=== PATIENT | male | born 1950 | race Caucasian/White ===

== ENCOUNTER 2018-07-01 09:03 | Emergency (ER) | payer BC ==
[2018-07-01 09:23] VITALS: BP 122/76
--- NOTE | 2018-07-01 09:51 | UC ---
Knee Pain HPI - HPI Summary HPI Summary: Pt c/o sudden onset of left knee pain without known injury. Pt c/o throbbing generalized knee pain. No redness, no hx of injury, minimal swelling, began xarelto l~ 5 days ago for afib. Has hx of Pulmonary Emboli post left shoulder surgery. - History of Current Complaint Chief Complaint: UCLowerExtremity Stated Complaint: LEFT KNEE INJURY Time Seen by Provider: 07/01/18 09:17 Hx Obtained From: Patient Onset/Duration: Sudden Onset, Lasting Hours Severity Initially: Severe Severity Currently: Severe Pain Intensity: 9 Character: Dull, Aching, Throbbing, Stiffness Aggravating Factor(s): Movement, Weight Bearing, Prolonged Standing, Stairs Alleviating Factor(s): Rest, Position Associated Signs And Symptoms: Positive: Swelling - minimal Able to Bear Weight: Yes - minimal - Risk Factors Septic Arthritis Risk Factor: Negative Gout Risk Factor: Age ^ 41, Male - Allergies/Home Medications Allergies/Adverse Reactions: Allergies Allergy/AdvReac Type Severity Reaction Status Date / Time oxycodone Allergy See Comment Verified 07/01/18 09:14 tetracycline Allergy See Comment Verified 07/01/18 09:14 Home Medications: Home Medications Omeprazole 20 mg PO DAILY 07/01/18 [History Confirmed 07/01/18] PMH/Surg Hx/FS Hx/Imm Hx Previously Healthy: No Cardiovascular History: Cardiac Disease, Atrial Fibrillation - Surgical History Surgical History: Yes Surgery Procedure, Year, and Place: left total shoulder,. Right rotator cuff shoulder - Family History Known Family History: Positive: Cardiac Disease - Social History Occupation: Employed Full-time - [place] Lives: With Family Alcohol Use: Daily Alcohol Amount: machelle nightly Substance Use Type: None Smoking Status (MU): Never Smoked Tobacco Have You Smoked in the Last Year: No Review of Systems All Other Systems Reviewed And Are Negative: Yes Constitutional: Positive: Negative Skin: Positive: Negative Eyes: Positive: Negative ENT: Positive: Negative Respiratory: Positive: Negative Cardiovascular: Positive: Negative Gastrointestinal: Positive: Negative Genitourinary: Positive: Negative Motor: Positive: Decreased ROM - left knee Neurovascular: Positive: Negative Musculoskeletal: Positive: Arthralgia, Decreased ROM, Edema, Myalgia Neurological: Positive: Negative Psychological: Positive: Negative Is Patient Immunocompromised?: No Physical Exam Triage Information Reviewed: Yes Appearance: Pain Distress Vital Signs: Initial Vital Signs Temp 97.9 F 07/01/18 09:19 Pulse 100 07/01/18 09:19 Resp 18 07/01/18 09:19 BP 122/76 07/01/18 09:19 Pulse Ox 98 07/01/18 09:19 Vital Signs Reviewed: Yes Eye Exam: Normal ENT: Positive: Hearing grossly normal Dental Exam: Normal Neck exam: Normal Respiratory: Positive: No respiratory distress Musculoskeletal: Positive: ROM Limited @ - left knee, Other: - c/o pain left knee joint space and at left lateral epicondyle/lateral distal femur Neurological Exam: Normal Psychological Exam: Normal Skin Exam: Normal Diagnostics - Radiology No standard instances Radiology Interpretation Completed By: Radiologist - IMPRESSION: Joint space narrowing medial compartment left knee with degenerative changes of the patellofemoral joint. Knee Pain Course/Dx - Differential Dx/Diagnosis Differential Diagnosis/HQI/PQRI: Internal Derangement Of Knee, Sprain, Strain Provider Diagnosis: Pain and swelling of left knee Discharge - Sign-Out/Discharge Documenting (check all that apply): Patient Departure All imaging exams completed and their final reports reviewed: Yes - Discharge Plan Condition: Stable Disposition: HOME Patient Education Materials: Patellofemoral Pain Syndrome (ED), Knee Pain (ED) Forms: *Work Release Referrals: Lynne Silva MD [Medical Doctor] - As Soon As Possible Boland DO,Jose Deluna [Primary Care Provider] - As Soon As Possible - Billing Disposition and Condition Condition: STABLE Disposition: Home - Attestation Statements Provider Attestation: Per institutional requirements, I have reviewed the chart, however, I was not consulted specifically or made aware of this patient by the midlevel provider. I did not personally evaluate, interact with , or disposition this patient.
== END 2018-07-01 10:48 | disposition home or self-care (01) ==
LOC: UCCORT 09:03
DX: M25.562 Pain in left knee (principal); M25.462 Effusion, left knee; Z88.5 Allergy status to narcotic agent; Z88.1 Allergy status to other antibiotic agents; I48.91 Unspecified atrial fibrillation; Z86.711 Personal history of pulmonary embolism
CPT/HCPCS: 99211; G0463

== ENCOUNTER 2018-08-23 12:00 | Inpatient (IN) | payer BC ==
--- NOTE | 2018-08-10 13:23 | HP ---
HISTORY AND PHYSICAL: DATE OF ADMISSION/SURGERY: 08/23/18 DATE OF OFFICE VISIT: 08/10/18 SURGEON: Lynne Silva MD.* (DICTATED BY DONTA CHE) PROCEDURE: Left total knee arthroplasty. CHIEF COMPLAINT: Left knee pain. HISTORY OF PRESENT ILLNESS: Mr. Barth is a 67-year-old gentleman with continued complaints of left knee pain. He has failed conservative treatment and elected to proceed with a left total knee arthroplasty. PAST MEDICAL HISTORY: 1. Hypertension. 2. Coronary artery disease. 3. History of pulmonary embolism. 4. AFib. 5. GERD. PAST SURGICAL HISTORY: Right total shoulder replacement and left shoulder arthroscopy. CURRENT MEDICATIONS: 1. Xarelto 20 mg a day. 2. Omeprazole 20 mg a day. 3. Alprazolam 1 mg daily. 4. Amlodipine 5 mg daily. 5. Mometasone nasal spray as needed. 6. Carvedilol 6.25 mg daily. 7. Vitamin C. 8. Multivitamin. 9. Osteo Bi-Flex. 10. CoQ-10. 11. Patricia-D. ALLERGIES: TETRACYCLINE and OXYCODONE; he states OXYCODONE made his heart stop in the past. FAMILY HISTORY: Coronary artery disease and diabetes. SOCIAL HISTORY: He is a 67-year-old gentleman who lives with his . He does not smoke or use drugs. Uses occasional alcohol. REVIEW OF SYSTEMS: A complete 14-point review of systems was reviewed with the patient. It was positive for occasional shortness of breath, GERD, and history of a pulmonary embolism. He denies history of hepatitis, HIV, or anesthesia problems. PHYSICAL EXAMINATION GENERAL: He is well developed, well nourished, in no acute distress. VITAL SIGNS: He stands 5 feet 10 inches tall, weighs 228 pounds. Blood pressure 124/82, his heart rate is 80. HEENT: Normocephalic, atraumatic. NECK: Supple. No palpable lymph nodes. PULMONARY: The lungs are clear to auscultation bilaterally. CARDIO: Regular rate and rhythm. Strong S1, S2. ABDOMEN: Soft, nontender, nondistended. NEUROLOGICAL: He is alert and oriented x3. MUSCULOSKELETAL: Left lower extremity, the skin is intact. There are no open wounds or abrasions. He has moderate joint effusions and tenderness over the medial and lateral joint line. He walks with an antalgic-type gait favoring his left knee. Range of motion is 10 to 120 degrees of flexion with severe patellofemoral crepitus. He has 2+ dorsalis pedis pulse. He is able to dorsiflex and plantarflex and he has intact sensation. ASSESSMENT AND PLAN: Mr. Barth is a 67-year-old gentleman with endstage osteoarthritis of the left knee. He has failed conservative treatment and elected to proceed with a left total knee arthroplasty. The surgery is scheduled for 08/23/[address] Silva discussed the risks and benefits of the surgery at today's visit and all of his questions were answered. He will follow with Dr. Silva 2 weeks after the surgery. Postoperatively, he will be given tramadol for pain only and no TXA will be used on this patient because of his history of a pulmonary embolism. DONTA CHE [id number]/[facility] #: [id number]
[~2018-08-23 12:00] MED LIST: Acetaminophen TAB* 325 MG PO ONE; Buffered Lidocaine 1% SYRIN* 1 ML/SYRINGE INTRADERM ONE; Dexamethasone IV* 4 MG/ML 1 ML (4 MG) IV SLOW PU ONE; Famotidine TAB* 20 MG PO ONE; Gabapentin CAP(*) 300 MG PO ONE; Lactated Ringers 1000 ML Bag* 1,000 ML IV SCH; celeCOXIB CAP* 200 MG PO ONE
--- OUTSIDE RECORDS SUMMARY | 2018-08-23 12:04 | XMS REPORT | Continuity of Care Document ---
:1950 External Reference #:[id number] Author Name Jose Boland DO Address [address] [place] [address] Care Team Providers Name Role Phone Jose Boland DO Primary Care Physician Unavailable Payers Date Identification Numbers Payment Provider Subscriber Effective: 2011 Policy Number: [id number] [facility] Commercial Mickey Barth PayID: [id number] [address] [address] [place] [phone] Effective: 2009 Policy Number: [id number] [facility] [email or web address] Mickey Barth Expires: 2011 PayID: [id number] [address] [address] [place] [address] Advance Directives Description No Information Available Problems Date Description Provider Status Onset: 10/26/2011 Benign hypertensive heart disease Natan Garcia MD Active without congestive heart failure Onset: 10/26/2011 Mitral valve disorder Natan Garcia MD Active Onset: 10/26/2011 Premature beats Natan Garcia MD Active Onset: 10/26/2011 First degree atrioventricular block Natan Garcia MD Active Onset: 10/06/2014 Chest pain Natan Garcia MD Active Onset: 12/03/2014 Prinzmetal angina Natan Garcia MD Active Onset: 06/10/2015 Pulmonary embolism Jose Boland DO Active Onset: 10/07/2016 Supraventricular premature beats Natan Garcia MD Active Onset: 08/02/2018 Preoperative cardiovascular examination Natan Garcia MD Active Onset: 08/02/2018 Persistent atrial fibrillation Natan Garcia MD Active Onset: 08/09/2018 Cardiomyopathy, unspecified Natan Garcia MD Active Onset: 08/09/2018 Body mass index 30+ - obesity Natan Garcia MD Active Onset: 03/07/2013 Obesity Jose Boland DO Active Onset: 04/07/2011 Restless legs Jose Boland DO Active Onset: 04/07/2011 Benign essential hypertension Jose Boland DO Active Onset: 06/04/2015 Postoperative pulmonary embolus Active Onset: 06/04/2015 Hemoptysis Active Onset: 06/02/2015 Full thickness rotator cuff tear Active Onset: 01/10/2015 Injury of shoulder region Active Family History Description No Information Available Social History Type Date Description Comments Sex Unknown Education Highest level completed, 12th grade Marital Status Lives With Spouse 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 ETOH Use consumes 4-5 beers per week Tobacco Use Start: Unknown Patient has never smoked Smoking Status Reviewed: 08/09/18 Patient has never smoked Allergies, Adverse Reactions, Alerts Date Description Reaction Status Severity Comments 10/24/2011 Tetracycline Active 10/24/2011 Dust Mites Active 10/24/2011 Grass Active 10/24/2011 Trees Active 06/10/2015 Oxycodone Unconscious Active Severe 12/18/2014 Tetracyclines & Related Anaphylaxis Active Severe Medications Medication Date Status Form Strength Qnty SIG Indications Ordering Provider Carvedilol 08/09 Active Tablets 6.25mg 60tab 1 by mouth Jose, s twice a day MD Natan Xarelto 06/27 Active Tablets 20mg 90tab 1 by mouth Krystian, s every day DO Jose Alprazolam 12/26 Active Tablets 1mg 30tab 1 by mouth Krystian, s every night oJse at bedtime- DO do not fill until 08/17 Amlodipine 10/06 Active Tablets 5mg 30tab 1 by mouth Jose Besylate s every day MD Natan Vitamin C 10/23 Active Tablets 500mg 1 po qd Jose MD Natan Coq-10 10/23 Active Capsules 100mg 1 po qd Jose MD Natan Osteo Bi-Flex 10/23 Active Tablets 250-200mg 1 po qd Jose MD Natan Strength Nasonex 10/23 Active Suspension 50mcg/Act 17uni 2 sprays Krystian ts each nostril Jose every day as DO needed Multivitamins Active Capsules 1 po qd Unknown Fexofenadine-Ps Active Tablets ER 60-120mg 1 by mouth Unknown eudoephed ER / 12HR twice a day as needed Omeprazole Active Capsules DR 20mg 120ca take 1 Boland ps capsule by Jose, mouth once DO daily Metoprolol 02/23 Hx Tablets ER 25mg 60tab 1 by mouth Jose, Succinate 24HR s twice a day MD Natan - 08/09 Omeprazole 06/[address] 20mg 120ca 1 by mouth K21.9 ps every day Jose, - DO 07/22 Amoxicillin 11/21 Hx Capsules 500mg 4caps take 4 capsules Jose - (2000mg) one DO 11/23 hour prior to dental appointment Jublia 06/29 Hx Solution 10% 8ml apply to B35.1 toenails Jose, - affected DO 12/20 once a day Xarelto 06/10 Hx Tablets 20mg 90tab 1 po daily I26.99 s Jose, - DO 12/14 Alprazolam 06/03 Hx Tablets 0.5mg 30tab Take 0.5 s tablets by - mouth 07/10 nightly needed for Sleep or Anxiety. Max Daily Amount: 0.25 mg. Aspirin 06/03 Hx Tablets 325mg 30tab Take 1 s tablet by - mouth daily. 02/02 To clots post op, take with food. Augmentin 09/18 Hx Tablets 875-125mg 20tab 1 by mouth 461.9 Boland s twice a day Jose - x 10 days DO 09/28 Sertraline HCL 07/24 Hx Tablets 25mg 30tab 1 by mouth s every day Jose, - DO 08/18 Aspirin 09/11 Hx Tablets 81mg 1 po qd Jose, MD Natan - 05/28 Patricia Allergy 10/23 Hx Tablets 180mg 1 po qd Jose MD Natan - 10/25 Aspirin 10/23 Hx Tablets 325mg 1 po qd Jose MD Natan - 09/11 Xanax 10/23 Hx Tablets 0.5mg 30tab 1 by mouth Krystian, s every night Jose, - at bedtime DO 12/26 as needed Aleve 10/23 Hx Capsules 220mg 2 po qd Jose MD Natan - 06/10 Diovan 07/28 Hx Tablets 160mg 30tab 1 by mouth Jose, s every day MD Natan - 10/06 Toprol XL 05/31 Hx Tablets ER 25mg 60tab 1 by mouth Jose 24HR s twice a day MD Natan - 02/23 Vitamin E Hx Capsules 400Unit 1 po qd Unknown Natural /0000 - 08/28 Valsartan Hx Tablets 160mg 90tab 1 po qd Jose, s MD Natan - 09/26 Aspirin Ec Hx Tablets DR 81mg 1 by mouth Unknown /0000 every day - 06/10 Acetaminophen Hx Tablets ER 650mg 1 by mouth Unknown ER /0000 every 6 - hours as 02/02 needed pain Aleve Hx Tablets 220mg 2 by mouth Unknown /0000 every day - 08/17 Immunizations CPT Code Status Date Vaccine Lot # [id number] Given 04/15/2018 Prevnar 13 Pneumococal Conjugate Vaccine 53481 Given 04/15/2018 Fluzone Highdose Age 65 And Over Preservative & Antibiotic Free Q2037 Given 03/11/2017 Fluvirin Immunization 59033 Given 03/11/2017 Zoster (Zostavax) 85228 Given 06/04/2016 Influenza Virus Vaccine,Quadrivalent,Split,Preserv Free, 0.5mL,[place] [address] Given 06/03/2015 Influenza Vac, Quadrivalent, Split, 0.25mL, Im Use 45946 Given 03/07/2013 Afluria Or Fluvirin Flu Vac Intramuscular 72879 Given 05/15/2012 Afluria Or Fluvirin Flu Vac Intramuscular Vital Signs Date Vital Result Comment 08/17/2018 11:41am Weight 228.00 lb Heart Rate 98 /min BP Systolic 154 mmHg BP Diastolic 86 mmHg BP Systolic Recheck 128 mmHg BP Diastolic Recheck 82 mmHg Respiratory Rate 18 /min Height 68 inches 5'8" O2 % BldC Oximetry 97 % BMI (Body Mass Index) 34.7 kg/m2 08/09/2018 12:55pm Weight 225.00 lb Heart Rate 100 /min occasionally irregular BP Systolic 128 mmHg BP Diastolic 74 mmHg Height 68 inches 5'8" BMI (Body Mass Index) 34.2 kg/m2 06/25/2018 9:58am Weight 226.00 lb Heart Rate 74 /min BP Systolic 140 mmHg BP Diastolic 90 mmHg Respiratory Rate 18 /min Height 68 inches 5'8" BMI (Body Mass Index) 34.4 kg/m2 12/20/2017 8:54am Weight 228.00 lb Heart Rate 74 /min BP Systolic 124 mmHg BP Diastolic 74 mmHg Respiratory Rate 18 /min Height 68 inches 5'8" BMI (Body Mass Index) 34.7 kg/m2 08/28/2017 10:31am Weight 230.00 lb Heart Rate 44 /min regular BP Systolic 126 mmHg BP Diastolic 74 mmHg Height 68 inches 5'8" BMI (Body Mass Index) 35.0 kg/m2 06/22/2017 9:40am Weight 230.00 lb Heart Rate 82 /min BP Systolic 138 mmHg BP Diastolic 84 mmHg Respiratory Rate 18 /min Height 68 inches 5'8" (12/2016) BMI (Body Mass Index) 35.0 kg/m2 12/20/2016 9:04am Weight 236.00 lb Heart Rate 92 /min BP Systolic 128 mmHg BP Diastolic 86 mmHg Respiratory Rate 18 /min Height 68 inches 5'8" (12/2016) BMI (Body Mass Index) 35.9 kg/m2 10/07/2016 11:06am Weight 234.00 lb Heart Rate 60 /min irregular BP Systolic 118 mmHg BP Diastolic 66 mmHg Height 68 inches 5'8" BMI (Body Mass Index) 35.6 kg/m2 06/22/2016 9:42am Weight 245.00 lb Heart Rate 88 /min BP Systolic 142 mmHg BP Diastolic 78 mmHg Respiratory Rate 18 /min Height 68 inches 5'8" (06/2016) BMI (Body Mass Index) 37.2 kg/m2 02/03/2016 8:08am Weight 242.00 lb Heart Rate 60 /min occasional skip BP Systolic 118 mmHg BP Diastolic 68 mmHg Height 68 inches 5'8" BMI (Body Mass Index) 36.8 kg/m2 12/17/2015 8:15am Weight 243.00 lb Heart Rate 54 /min BP Systolic 112 mmHg BP Diastolic 60 mmHg Respiratory Rate 18 /min Height 68 inches 5'8" BMI (Body Mass Index) 36.9 kg/m2 09/29/2015 9:48am Weight 242.00 lb Heart Rate 50 /min BP Systolic 132 mmHg BP Diastolic 84 mmHg Respiratory Rate 18 /min Height 68 inches 5'8" BMI (Body Mass Index) 36.8 kg/m2 08/03/2015 9:48am Weight 241.00 lb Heart Rate 56 /min regular BP Systolic 126 mmHg BP Diastolic 64 mmHg Height 68 inches 5'8" BMI (Body Mass Index) 36.6 kg/m2 07/02/2015 2:43pm Weight 241.00 lb Heart Rate 100 /min irregular BP Systolic 126 mmHg BP Diastolic 68 mmHg Height 68 inches 5'8" BMI (Body Mass Index) 36.6 kg/m2 06/29/2015 8:18am Weight 236.00 lb Heart Rate 56 /min BP Systolic 142 mmHg BP Diastolic 80 mmHg Respiratory Rate 18 /min Height 68 inches 5'8" BMI (Body Mass Index) 35.9 kg/m2 06/10/2015 10:19am Weight 232.00 lb Heart Rate 60 /min BP Systolic 150 mmHg BP Diastolic 90 mmHg Respiratory Rate 18 /min Height 68 inches 5'8" O2 % BldC Oximetry 97 % BMI (Body Mass Index) 35.3 kg/m2 06/04/2015 3:00pm Heart Rate 94 /min BP Systolic 143 mmHg BP Diastolic 66 mmHg Respiratory Rate 20 /min O2 % BldC Oximetry 95 % 06/04/2015 3:36pm Body Temperature 98.1 F 05/06/2015 11:05am Weight 237.00 lb Heart Rate 88 /min BP Systolic 128 mmHg BP Diastolic 80 mmHg Respiratory Rate 18 /min Height 68 inches 5'8" BMI (Body Mass Index) 36.0 kg/m2 12/26/2014 8:44am Weight 230.00 lb Heart Rate 64 /min BP Systolic 138 mmHg L/Reg BP Diastolic 74 mmHg L/Reg Respiratory Rate 19 /min Height 68 inches 5'8" BMI (Body Mass Index) 35.0 kg/m2 12/03/2014 7:20am Weight 234.00 lb Heart Rate 60 /min BP Systolic 110 mmHg BP Diastolic 78 mmHg Height 68 inches 5'8" BMI (Body Mass Index) 35.6 kg/m2 10/06/2014 2:20pm Weight 231.00 lb Heart Rate 88 /min regular BP Systolic 118 mmHg BP Diastolic 64 mmHg Height 68 inches 5'8" BMI (Body Mass Index) 35.1 kg/m2 09/18/2014 9:37am Body Temperature 97.4 F Weight 235.00 lb Heart Rate 72 /min BP Systolic 144 mmHg BP Diastolic 82 mmHg Respiratory Rate 18 /min Height 68 inches 5'8" O2 % BldC Oximetry 96 % BMI (Body Mass Index) 35.7 kg/m2 08/18/2014 10:49am Weight 233.00 lb Heart Rate 80 /min BP Systolic 136 mmHg BP Diastolic 70 mmHg Respiratory Rate 18 /min Height 68 inches 5'8" BMI (Body Mass Index) 35.4 kg/m2 07/23/2014 3:11pm Body Temperature 98.4 F Weight 236.00 lb Heart Rate 97 /min BP Systolic 128 mmHg BP Diastolic 74 mmHg Respiratory Rate 18 /min Height 68 inches 5'8" O2 % BldC Oximetry 97 % BMI (Body Mass Index) 35.9 kg/m2 05/07/2014 9:52am BP Systolic 134 mmHg BP Diastolic 92 mmHg 05/07/2014 9:52am Weight 236.00 lb Heart Rate 84 /min BP Systolic 146 mmHg BP Diastolic 88 mmHg Respiratory Rate 18 /min Height 67.75 inches 5'7.75" 10/31/2013 11:06am Weight 236.00 lb Heart Rate 72 /min occasional skip BP Systolic 116 mmHg BP Diastolic 62 mmHg Height 68 inches 5'8" BMI (Body Mass Index) 35.9 kg/m2 10/25/2013 10:22am Weight 237.00 lb Heart Rate 72 /min BP Systolic 132 mmHg BP Diastolic 72 mmHg Respiratory Rate 18 /min Height 67.75 inches 5'7.75" 03/07/2013 10:08am Weight 233.00 lb Heart Rate 72 /min BP Systolic 126 mmHg BP Diastolic 78 mmHg Respiratory Rate 18 /min Height 67.75 inches 5'7.75" 09/11/2012 11:07am Weight 226.00 lb Heart Rate 80 /min occasional skip BP Systolic 92 mmHg BP Diastolic 56 mmHg Height 68 inches 5'8" BMI (Body Mass Index) 34.4 kg/m2 07/30/2012 9:31am Weight 224.00 lb Heart Rate 72 /min BP Systolic 108 mmHg BP Diastolic 78 mmHg Respiratory Rate 18 /min Height 67.75 inches 5'7.75" 01/27/2012 10:38am Weight 226.25 lb Heart Rate 88 /min BP Systolic 124 mmHg BP Diastolic 82 mmHg Respiratory Rate 18 /min Height 67.75 inches 5'7.75"12/29/2011 1:26pm Weight 224.00 lb Respiratory Rate 17 /min Height 67.75 inches 5'7.75"12/26/2011 11:06am Body Temperature 97.4 F Weight 224.50 lb Heart Rate 82 /min BP Systolic 120 mmHg BP Diastolic 68 mmHg Respiratory Rate 19 /min Height 67.75 inches 5'7.75"10/26/2011 11:03am Weight 226.00 lb Heart Rate 68 /min regular BP Systolic 104 mmHg BP Diastolic 66 mmHg Height 68 inches 5'8" BMI (Body Mass Index) 34.4 kg/m2 07/18/2011 1:04pm Weight 232.31 lb Heart Rate 70 /min BP Systolic 132 mmHg BP Diastolic 72 mmHg Respiratory Rate 18 /min Height 67.75 inches 5'7.75"04/07/2011 1:02pm Weight 238.19 lb Heart Rate 78 /min BP Systolic 124 mmHg BP Diastolic 94 mmHg Respiratory Rate 18 /min Height 67.75 inches 5'7.75"02/01/2011 8:41am Weight 235.00 lb Heart Rate 76 /min BP Systolic 140 mmHg BP Diastolic 80 mmHg Respiratory Rate 18 /min Height 67.75 inches 5'7.75" 06/03/2010 10:21am Weight 234.00 lb Heart Rate 64 /min BP Systolic 120 mmHg l arm BP Diastolic 70 mmHg l arm Respiratory Rate 18 /min 11/23/2009 10:03am Weight 247.12 lb Heart Rate 78 /min BP Systolic 132 mmHg BP Diastolic 76 mmHg Respiratory Rate 24 /min 10/22/2008 10:06am Weight 240.38 lb Heart Rate 96 /min BP Systolic 146 mmHg LEFT BP Diastolic 92 mmHg LEFT Respiratory Rate 15 /min 09/17/2008 10:24am Weight 242.12 lb Heart Rate 68 /min BP Systolic 138 mmHg LEFT BP Diastolic 88 mmHg LEFT Respiratory Rate 14 /min Height 68 inches 5'8" Results Test Date Facility Test Result H/L Range Note CBC with Auto Diff-fcmg 06/19/2018 [facility] WBC 5.2 K/uL 4.1-11.0 RBC 5.20 M/uL 4.60-6.10 Hemoglobin 14.6 gm/dL 13.5-18.0 Hematocrit 44.3 % 41.0-53.0 MCV 85.0 fL 80.0-97.0 MCH 28.1 pg 27.0-32.0 MCHC 33.0 g/dL 32.0-36.0 RDW 14.3 % 11.5-14.5 PLT Count 228 K/ul 140-400 MPV 9.4 FL 7.1-10.7 Neutrophil 64.8 % 35.0-75.0 Lymphocyte 19.2 % 16.0-52.0 Monocyte 13.6 % High 2.0-10.0 Eosinophil 1.4 % 0.0-5.0 Basophil 1.0 % 0.0-4.0 Abs Neutrophils 3.4 K/uL 2.1-8.0 Abs Lymphocytes 1.0 K/uL 0.8-5.5 Abs Monocytes 0.7 K/uL 0.1-1.0 Abs Eosinophils 0.1 K/uL 0.0-0.5 Abs Basophils 0.1 K/uL 0.0-0.3 Basic (BMP) 06/19/2018 [facility] Sodium 141 mmol/L 135-146 1 Potassium 4.8 mmol/L 3.5-5.2 Chloride# 106 mmol/L 97-110 2 Carbon Dioxide 28 mmol/L 24-34 Glucose 109 mg/dL High 70-105 BUN 31 mg/dL High 6-26 Creatinine 1.0 mg/dL 0.5-1.4 Calcium 9.2 mg/dL 8.5-10.2 Non Erica Egfr >60 >60 3 Erica Egfr >60 >60 4 Anion Gap 7 mmol/L 5-15 5 Laboratory test finding 06/19/2018 [facility] TSH 2.82 uIU/mL 0.35-4.94 Lipid Treatment 06/19/2018 [facility] Cholesterol 163 mg/dL 50-199 Triglycerides 55 mg/dL 30-200 HDL 48 mg/dL 29-71 6 Chol/ HDL Ratio 3.4 ratio Low 4.0-6.7 VLDL 11 mg/dL 2-29 LDL (Calc) 104 mg/dL High 20-99 7 Alt 15 U/L 3-42 Ast 18 U/L 8-42 CBC With Auto Diff 12/13/2017 [facility] WBC 3.8 K/uL Low 4.1-11.0 RBC 5.05 M/uL 4.60-6.10 Hemoglobin 14.3 gm/dL 13.5-18.0 Hematocrit 43.7 % 41.0-53.0 MCV 86.6 fL 80.0-97.0 MCH 28.2 pg 27.0-32.0 MCHC 32.6 g/dL 32.0-36.0 RDW 14.9 % High 11.5-14.5 PLT Count 157 K/ul 140-400 MPV 10.4 FL 7.1-10.7 Neutrophil 58.1 % 35.0-75.0 Lymphocyte 22.8 % 16.0-52.0 Monocyte 16.8 % High 2.0-10.0 Eosinophil 1.7 % 0.0-5.0 Basophil 0.6 % 0.0-4.0 Abs Neutrophils 2.2 K/uL 2.1-8.0 Abs Lymphocytes 0.9 K/uL 0.8-5.5 Abs Monocytes 0.6 K/uL 0.1-1.0 Abs Eosinophils 0.1 K/uL 0.0-0.5 Abs Basophils 0.0 K/uL 0.0-0.3 Basic (BMP) 12/13/2017 [facility] Sodium 143 mmol/L 135-146 8 Potassium 4.6 mmol/L 3.5-5.2 Chloride# 107 mmol/L 97-110 9 Carbon Dioxide 27 mmol/L 24-34 Glucose 96 mg/dL 70-105 BUN 37 mg/dL High 6-26 Creatinine 1.0 mg/dL 0.5-1.4 Calcium 9.0 mg/dL 8.5-10.2 Non Erica Egfr >60 >60 10 Erica Egfr >60 >60 11 Anion Gap 9 mmol/L 5-15 12 Laboratory test finding 12/13/2017 [facility] TSH 3.52 uIU/mL 0.35-4.94 Lipid Treatment 12/13/2017 [facility] Cholesterol 166 mg/dL 50-199 Triglycerides 50 mg/dL 30-200 HDL 45 mg/dL 29-71 13 Chol/ HDL Ratio 3.7 ratio Low 4.0-6.7 VLDL 10 mg/dL 2-29 LDL (Calc) 111 mg/dL High 20-99 14 Alt 14 U/L 3-42 Ast 16 U/L 8-42 Laboratory test finding 12/13/2017 [facility] PSA 1.290 ng/mL 0.000-4.000 15 CBC With Auto Diff 06/15/2017 [facility] WBC 3.8 K/uL Low 4.1-11.0 RBC 5.12 M/uL 4.60-6.10 Hemoglobin 14.6 gm/dL 13.5-18.0 Hematocrit 44.5 % 41.0-53.0 MCV 86.8 fL 80.0-97.0 MCH 28.4 pg 27.0-32.0 MCHC 32.7 g/dL 32.0-36.0 RDW 14.3 % 11.5-14.5 PLT Count 177 K/ul 140-400 MPV 10.0 FL 7.1-10.7 Neutrophil 53.6 % 35.0-75.0 Lymphocyte 26.6 % 16.0-52.0 Monocyte 17.3 % High 2.0-10.0 Eosinophil 1.6 % 0.0-5.0 Basophil 0.9 % 0.0-4.0 Abs Neutrophils 2.0 K/uL Low 2.1-8.0 Abs Lymphocytes 1.0 K/uL 0.8-5.5 Abs Monocytes 0.7 K/uL 0.1-1.0 Abs Eosinophils 0.1 K/uL 0.0-0.5 Abs Basophils 0.0 K/uL 0.0-0.3 Basic (BMP) 06/15/2017 [facility] Sodium 144 mmol/L 135-146 16 Potassium 4.7 mmol/L 3.5-5.2 Chloride# 109 mmol/L 97-110 17 Carbon Dioxide 27 mmol/L 24-34 Glucose 98 mg/dL 70-105 Creatinine 1.0 mg/dL 0.5-1.4 Calcium 9.3 mg/dL 8.5-10.2 Non Erica Egfr >60 >60 18 Erica Egfr >60 >60 19 Anion Gap 8 mmol/L 7-16 20 BUN 29 mg/dL High 6-26 Laboratory test finding 06/15/2017 [facility] TSH 2.73 uIU/mL 0.35-4.94 Lipid Treatment 06/15/2017 [facility] Cholesterol 160 mg/dL 50-199 Triglycerides 66 mg/dL 30-200 HDL 45 mg/dL 29-71 21 Chol/ HDL Ratio 3.6 ratio Low 4.0-6.7 VLDL 13 mg/dL 2-29 LDL (Calc) 102 mg/dL High 20-99 22 Alt 14 U/L 3-42 Ast 18 U/L 8-42 CBC With Auto Diff 12/15/2016 [facility] WBC 4.1 K/uL 4.1-11.0 RBC 5.10 M/uL 4.60-6.10 Hemoglobin 14.5 gm/dL 13.5-18.0 Hematocrit 44.8 % 41.0-53.0 MCV 87.8 fL 80.0-97.0 MCH 28.4 pg 27.0-32.0 MCHC 32.3 g/dL 32.0-36.0 RDW 14.3 % 11.5-14.5 PLT Count 188 K/ul 140-400 Neutrophil 55.7 % 35.0-75.0 Lymphocyte 23.6 % 16.0-52.0 Monocyte 17.3 % High 2.0-10.0 Eosinophil 2.4 % 0.0-5.0 Basophil 1.0 % 0.0-4.0 Abs Neutrophils 2.3 K/uL 2.1-8.0 Abs Lymphocytes 1.0 K/uL 0.8-5.5 Abs Monocytes 0.7 K/uL 0.1-1.0 Abs Eosinophils 0.1 K/uL 0.0-0.5 Abs Basophils 0.0 K/uL 0.0-0.3 Basic (BMP) 12/15/2016 [facility] Sodium 141 mmol/L 135-146 23 Potassium 4.8 mmol/L 3.5-5.2 Chloride# 106 mmol/L 97-110 24 Carbon Dioxide 27 mmol/L 24-34 Glucose 101 mg/dL 70-105 BUN 32 mg/dL High 6-26 Creatinine 1.1 mg/dL 0.5-1.4 Calcium 9.0 mg/dL 8.5-10.2 Non Erica Egfr >60 >60 25 Erica Egfr >60 >60 26 Anion Gap 13 mmol/L 7-16 27 Laboratory test finding 12/15/2016 [facility] TSH 3.14 uIU/mL 0.35-4.94 Lipid Treatment 12/15/2016 [facility] Cholesterol 169 mg/dL 50-199 Triglycerides 73 mg/dL 30-200 HDL 45 mg/dL 29-71 28 Chol/ HDL Ratio 3.8 ratio Low 4.0-6.7 VLDL 15 mg/dL 2-29 LDL (Calc) 110 mg/dL High 20-99 29 Alt 14 U/L 3-42 Ast 17 U/L 8-42 CBC With Auto Diff 01/14/2016 [facility] WBC 4.3 K/uL 4.1-11.0 RBC 5.13 M/uL 4.60-6.10 Hemoglobin 14.5 gm/dL 13.5-18.0 Hematocrit 44.5 % 41.0-53.0 MCV 86.8 fL 80.0-97.0 MCH 28.3 pg 27.0-32.0 MCHC 32.6 g/dL 32.0-36.0 RDW 14.2 % 11.5-14.5 PLT Count 180 K/ul 140-400 Neutrophil 55.5 % 35.0-75.0 Lymphocyte 24.7 % 16.0-52.0 Monocyte 17.3 % High 2.0-10.0 Eosinophil 1.4 % 0.0-5.0 Basophil 1.1 % 0.0-4.0 Abs Neutrophils 2.4 K/uL 2.1-8.0 Abs Lymphocytes 1.1 K/uL 0.8-5.5 Abs Monocytes 0.7 K/uL 0.1-1.0 Abs Eosinophils 0.1 K/uL 0.0-0.5 Abs Basophils 0.0 K/uL 0.0-0.3 Basic (BMP) 01/14/2016 [facility] Sodium 139 mmol/L 134-142 Potassium 4.9 mmol/L 3.5-5.2 Chloride 105 mmol/L 97-109 Carbon Dioxide 28 mmol/L 24-34 Glucose 90 mg/dL 70-105 BUN 32 mg/dL High 6-26 Creatinine 1.0 mg/dL 0.5-1.4 Calcium 9.3 mg/dL 8.5-10.2 Anion Gap 11 mmol/L 6-14 Non Erica Egfr >60 >60 30 Erica Egfr >60 >60 31 Laboratory test finding 01/14/2016 [facility] TSH 3.19 uIU/mL 0.35-4.94 Lipid Treatment 01/14/2016 [facility] Cholesterol 178 mg/dL 50-199 Triglycerides 77 mg/dL 30-200 HDL 42 mg/dL 29-71 32 Chol/ HDL Ratio 4.2 ratio 4.0-6.7 VLDL 15 mg/dL 2-29 LDL (Calc) 121 mg/dL High 20-99 33 Alt 14 U/L 3-42 Ast 16 U/L 8-42 CBC With Auto Diff 06/29/2015 [facility] WBC 4.7 K/uL 4.1-11.0 RBC 5.00 M/uL 4.60-6.10 Hemoglobin 14.1 gm/dL 13.5-18.0 Hematocrit 43.9 % 41.0-53.0 MCV 87.8 fL 80.0-97.0 MCH 28.1 pg 27.0-32.0 MCHC 32.0 g/dL 32.0-36.0 RDW 14.6 % High 11.5-14.5 PLT Count 174 K/ul 140-400 Neutrophil 61.7 % 35.0-75.0 Lymphocyte 22.3 % 16.0-52.0 Monocyte 13.9 % High 2.0-10.0 Eosinophil 1.3 % 0.0-5.0 Basophil 0.8 % 0.0-4.0 Abs Neutrophils 2.9 K/uL 2.1-8.0 Abs Lymphocytes 1.0 K/uL 0.8-5.5 Abmon 0.6 K/uL 0.1-1.0 Abs Eosinophils 0.1 K/uL 0.0-0.5 Abs Basophils 0.0 K/uL 0.0-0.3 Basic (BMP) 06/29/2015 [facility] Sodium 140 mmol/L 134-142 Potassium 4.2 mmol/L 3.5-5.2 Chloride 106 mmol/L 97-109 Carbon Dioxide 27 mmol/L 24-34 Glucose 100 mg/dL 70-105 BUN 20 mg/dL 6-26 Creatinine 1.0 mg/dL 0.5-1.4 Calcium 9.1 mg/dL 8.5-10.2 Anion Gap 11 mmol/L 6-14 Non Erica Egfr >60 >60 34 Erica Egfr >60 >60 35 Laboratory test finding 06/29/2015 [facility] TSH 3.75 uIU/mL 0.35-4.94 Lipid Treatment 06/29/2015 [facility] Cholesterol 180 mg/dL 50-199 Triglycerides 77 mg/dL 30-200 HDL 47 mg/dL 29-71 36 Chol/ HDL Ratio 3.8 ratio Low 4.0-6.7 VLDL 15 mg/dL 2-29 LDL (Calc) 118 mg/dL High 20-99 37 Alt 12 U/L 3-42 Ast 14 U/L 8-42 Poct i-Stat 06/04/2015 N2N/CCD Import i-Stat Troponin 0.02 ng/mL 0.00- 0.10 Troponin I CBC and 06/04/2015 N2N/CCD Import Abs Basophil 0.0 10*3/uL 0.0-0.2 Differential Abs Eosinophil 0.0 10*3/uL 0.0-0.5 Abs Lymphocyte 1.1 10*3/uL Low 1.2-4.8 Abs Monocyte 1.1 10*3/uL High 0.0-0.8 Abs Neutrophil 5.7 10*3/uL 1.8-7.7 Basophil 0.4 % 0.0-4.0 Eosinophil 0.3 % 0.0-5.0 Hematocrit 39.6 % Low 41.0-53.0 Hemoglobin 13.0 g/dL Low 13.5-18.0 Lymphocyte 13.6 % Low 16.0-52.0 Mean Cell Hemoglobin 28.5 pg 27.0-32.0 Mean Cell Hgb Conc 32.9 g/dL 32.0-36.0 Mean Cell Volume 86.5 fL 80.0-95.0 Mean Platelet Volume 10.2 fL 7.1-10.7 Monocyte 14.2 % High 0.0-8.0 Neutrophil 71.5 % 35.0-75.0 Platelet Count 157 10*3/uL 150-450 Red Blood Cell Count 4.57 10*6/uL Low 4.60-6.10 Red Cell Dist Width 14.3 % 10.5-14.5 White Blood Cell 8.0 10*3/uL 4.1-11.0 Comprehensive Metabolic Panel 06/04/2015 N2N/CCD Import Alt/SGP 20 U/L 12-78 Anion Gap 7 mmol/L 7-16 Ast/Sgo 15 U/L 11-39 BUN/Cre Ratio 20.8 Ratio High 10.0-20.0 Bicarbonate 28 mmol/L 22-31 Bilirubin, Total 0.9 mg/dL 0.0-1.0 Blood Urea Nitrogen 21 mg/dL 7-24 Calcium 8.3 mg/dL Low 8.4-10.2 Chloride 104 mmol/L 100-108 Creatinine 1.01 mg/dL 0.80-1.30 GFR >60 >59 ml/min/1.73m2 GFR Interpretation See Notes GFR Non- >60 >59 ml/min/1.73m2 Globulin 3.7 g/dL 2.7-4.3 Glucose 105 mg/dL High 70-99 Potassium 4.0 mmol/L 3.6-5.2 Sodium 139 mmol/L 136-145 Total Protein 6.9 g/dL 6.4-8.2 [facility] K/uL 4.1-11.0 38 RBC 5.32 M/uL 4.60-6.10 Hemoglobin 14.9 gm/dL 13.5-18.0 Hematocrit 46.3 % 41.0-53.0 MCV 87.1 fL 80.0-97.0 MCH 28.1 pg 27.0-32.0 MCHC 32.3 g/dL 32.0-36.0 RDW 13.9 % 11.5-14.5 PLT Count 217 K/ul 140-400 Neutrophil 67.9 % 35.0-75.0 Lymphocyte 19.4 % 16.0-52.0 Monocyte 10.3 % High 2.0-10.0 Eosinophil 1.5 % 0.0-5.0 Basophil 0.9 % 0.0-4.0 Abs Neutrophils 4.3 K/uL 2.1-8.0 Abs Lymphocytes 1.2 K/uL 0.8-5.5 Abmon 0.7 K/uL 0.1-1.0 Abs Eosinophils 0.1 K/uL 0.0-0.5 Abs Basophils 0.1 K/uL 0.0-0.3 Basic (BMP) 05/06/2015 [facility] Sodium 140 mmol/L 134-142 Potassium 4.8 mmol/L 3.5-5.2 Chloride 106 mmol/L 97-109 Carbon Dioxide 28 mmol/L 24-34 Glucose 122 mg/dL High 70-105 BUN 24 mg/dL 6-26 Creatinine 1.0 mg/dL 0.5-1.4 Calcium 9.3 mg/dL 8.5-10.2 Anion Gap 11 mmol/L 6-14 Non Erica Egfr >60 >60 39 Erica Egfr >60 >60 40 CBC With Auto Diff 12/26/2014 [facility] WBC 3.9 K/uL Low 4.1-11.0 RBC 5.29 M/uL 4.60-6.10 Hemoglobin 15.2 gm/dL 13.5-18.0 Hematocrit 46.5 % 41.0-53.0 MCV 88.0 fL 80.0-97.0 MCH 28.7 pg 27.0-32.0 MCHC 32.6 g/dL 32.0-36.0 RDW 13.5 % 11.5-14.5 PLT Count 188 K/ul 140-400 Neutrophil 62.8 % 35.0-75.0 Lymphocyte 21.4 % 16.0-52.0 Monocyte 13.6 % High 2.0-10.0 Eosinophil 1.3 % 0.0-5.0 Basophil 0.9 % 0.0-4.0 Abs Neutrophils 2.4 K/uL 2.1-8.0 Abs Lymphocytes 0.8 K/uL 0.8-5.5 Abmon 0.5 K/uL 0.1-1.0 Abs Eosinophils 0.0 K/uL 0.0-0.5 Abs Basophils 0.0 K/uL 0.0-0.3 Basic (BMP) 12/26/2014 [facility] Sodium 138 mmol/L 134-142 Potassium 4.7 mmol/L 3.5-5.2 Chloride 104 mmol/L 97-109 Carbon Dioxide 29 mmol/L 24-34 Glucose 97 mg/dL 70-105 BUN 30 mg/dL High 6-26 Creatinine 0.9 mg/dL 0.5-1.4 Calcium 9.3 mg/dL 8.5-10.2 Anion Gap 10 mmol/L 6-14 Non Erica Egfr >60 >60 41 Erica Egfr >60 >60 42 Lipid Treatment 12/26/2014 [facility] Cholesterol 174 mg/dL 50-199 Triglycerides 56 mg/dL 30-200 HDL 42 mg/dL 29-71 43 Chol/ HDL Ratio 4.1 ratio 4.0-6.7 VLDL 11 mg/dL 2-29 LDL (Calc) 121 mg/dL High 20-99 44 Alt 13 U/L 3-42 Ast 15 U/L 8-42 Laboratory test 12/26/2014 [facility] TSH 3.03 uIU/mL 0.35-4.94 finding Laboratory test 07/23/2014 [facility] CRP (C-Reactive) 0.44 mg/dL 0.00- 0.75 finding Laboratory test 07/23/2014 [facility] Troponin I <0.06 ng/mL (0.00-0.10) 45 finding D-Dimer,Sensitive <100 ng/mL (<350) 46 Laboratory test finding 05/27/2014 N2N/CCD Import Anion Gap 10 mEq/L 8- 16 BUN 22 mg/dL High 7-18 BUN/Creat 20.0 ratio Bas% 0.4 % 0.1-1.0 Baso # 0.02 K/uL Low 0.1-0.2 Calcium 8.8 mg/dL 8.5-10.1 Carbon Dioxide 29 mmol/L 21-32 Chloride 107 mmol/L 98-107 Creatinine 1.1 mg/dL 0.6-1.3 Eo% 1.3 % 0.0-5.0 Eos # 0.06 K/uL 0.0-0.5 Glom Filtration Rate, Estimate >60 mL/min >60 Glucose 89 mg/dL 74-106 Hematocrit 43.4 % 38.0-48.0 Hemoglobin 14.2 gm/dL 12.8-17.0 Hepatitis C Antibody Nonreactive Nonreactive If >60 mL/min >60 47 Lymph # 0.91 K/uL Low 1.2-4.0 Lymph % 20.1 % 17.0-56.0 Mean Cell Volume 89.3 fl 80.0-96.0 Mean Corpuscular HGB 29.2 pg 27.0-33.0 Mean Corpuscular HGB Conc 32.7 g/dL 31.7-36.0 Mean Platelet Volume 11.4 fL High 6.6-10.6 Osborne # 0.63 K/uL High 0.0-0.6 Osborne % 13.9 % High 0.0-10.0 Neut# 2.90 K/uL 1.8-7.0 Neut% 64.3 % 33.0-73.0 Platelet Count 234 K/uL 150-400 Potassium 4.9 mmol/L 3.5-5.1 Red Blood Count 4.86 M/uL 4.20-5.80 Red Cell Distri Width %CV 13.9 % 11.6-15.8 Red Cell Distri Width SD 44.8 fl 36-51 SGPT/Alt 25 U/L 12-78 Sgot/Ast 16 U/L 15-37 Signal/Cutoff ratio < 0.02 <0.80 48 Sodium 141 mmol/L 136-145 Thyroid Stim Hormone 3.50 uIU/mL 0.36-3.74 White Blood Count 4.5 K/uL 3.4-10.5 LDL Cholesterol Profile 05/27/2014 N2N/CCD Import Cholesterol 172 mg/dL < 200 49 HDL Cholesterol 56 mg/dL > 40 50 LDL-Cholesterol 108 mg/dL < 100 51 Triglycerides 41 mg/dL < 150 52 Lipid Panel 10/18/2013 [facility] Cholesterol Total 188 Z#Cholesterol/HDL Ratio 4.4 HDL Cholesterol- 43 Z#LDL, Low Density Lipoprotein 133.2 Triglycerides 59 Z#VLDL Cholesterol 11.8 Laboratory test finding 10/18/2013 N2N/CCD Import % Baso. 1.5 % 0.0-2.0 % Eos. 2.3 % 0.0-4.0 % Lymph 25 % 20-44 % Osborne 14.0 % High 2.0-10.0 % Liliana 58 % 50-70 A/G Ratio 1.4 ratio Low 1.6-2.2 Absolute Baso. 0.1 K/ul 0.0-0.3 Absolute Eos. 0.1 K/ul 0.0-0.5 Absolute Lymph. 1.0 K/ul 0.8-4.8 Absolute Osborne. 0.6 K/ul 0.1-1.0 Absolute Liliana. 2.43 K/ul 2.05-7.63 Albumin 3.9 g/dL 3.5-5.0 Alk. Phos. 41.0 U/L 30.0-126.0 Alt 19.0 U/L Low 21.0-72.0 Anion Gap 8.0 mmol/L Low 10.0-20.0 Ast 19.0 U/L 17.0-59.0 BUN 28.0 mg/dL High 9.0-21.0 BUN/Creat Ratio 28.0 ratio High 12.0-20.0 Calcium 9.1 mg/dL 8.7-10.5 Chloride 107.0 mmol/L 98.0-107.0 Co2 26.0 mmol/L 22.0-30.0 Creatinine-Serum 1.0 mg/dL 0.8-1.5 Globulin 2.8 g/dL 2.7-4.3 Glucose 96.0 mg/dL 75.0-110.0 HCT 45.7 % 37.0-51.0 HGB 14.9 Gm/dl 12.0-16.0 MCH 28.9 pg 26.0-32.0 MCHC 32.7 g/dL 31.0-36.0 MCV 88.4 Fl 80.0-97.0 MPV 8.5 fL 6.0-10.0 PLT 218 K/ul 140-440 Potasium 4.5 mmol/L 3.6-5.0 RBC 5.2 M/ul 4.2-6.3 RDW 12.8 % 11.5-14.5 Sodium 141.0 mmil/L 137.0-145.0 TSH 3.51 uIU/ml 0.50-6.00 Total Bilirubin 0.9 mg/dL 0.2-1.3 Total Protein 6.7 g/dL 6.3-8.2 WBC 4.2 K/ul 4.1-10.9 eGFR 71.9 mi/minper1.73 53 Lipid Panel 10/18/2013 N2N/[facility] Import Chol/HDL Ratio 4.4 ratio Cholesterol 188.0 mg/dL 50.0-199.0 HDL 43.0 mg/dL 29.0-67.0 LDL, Calculated 133.2 mg/dL High 20.0-129.0 Triglycerides 59.0 mg/dL 30.0-249.0 vLDL 11.8 ng/dL Lipid Panel 07/31/2012 N2N/CCD Import Chol/HDL Ratio 4.0 ratio Cholesterol 183.0 mg/dL 50.0-199.0 HDL 46.0 mg/dL 29.0-67.0 LDL, Calculated 123.2 mg/dL 20.0-129.0 Triglycerides 69.0 mg/dL 30.0-249.0 vLDL 13.8 ng/dL Laboratory test finding 07/31/2012 N2N/[facility] Import % Baso. 1.2 % 0.0-2.0 % Eos. 1.4 % 0.0-4.0 % Lymph 24 % 20-44 % Osborne 14.5 % High 2.0-10.0 % Liliana 59 % 50-70 A/G Ratio 1.3 ratio Low 1.6-2.2 Absolute Baso. 0.1 K/ul 0.0-0.3 Absolute Eos. 0.1 K/ul 0.0-0.5 Absolute Lymph. 1.1 K/ul 0.8-4.8 Absolute Osborne. 0.6 K/ul 0.1-1.0 Absolute Liliana. 2.60 K/ul 2.05-7.63 Albumin 3.8 g/dL 3.5-5.0 Alk. Phos. 47.0 U/L 30.0-126.0 Alt 14.0 U/L Low 21.0-72.0 Anion Gap 8.0 mmol/L Low 10.0-20.0 Ast 17.0 U/L 17.0-59.0 BUN 28.0 mg/dL High 9.0-21.0 BUN/Creat Ratio 31.1 ratio High 12.0-20.0 Calcium 9.9 mg/dL 8.7-10.5 Chloride 106.0 mmol/L 98.0-107.0 Co2 26.0 mmol/L 22.0-30.0 Creatinine-Serum 0.9 mg/dL 0.8-1.5 Globulin 2.9 g/dL 2.7-4.3 Glucose 104.0 mg/dL 75.0-110.0 HCT 47.8 % 37.0-51.0 HGB 14.4 Gm/dl 12.0-16.0 MCH 26.6 pg 26.0-32.0 MCHC 30.1 g/dL Low 31.0-36.0 MCV 88.3 Fl 80.0-97.0 MPV 7.8 fL 6.0-10.0 PLT 261 K/ul 140-440 Potasium 4.6 mmol/L 3.6-5.0 RBC 5.4 M/ul 4.2-6.3 RDW 13.9 % 11.5-14.5 Sodium 140.0 mmil/L 137.0-145.0 TSH 2.61 uIU/ml 0.50-6.00 Total Bilirubin 0.9 mg/dL 0.2-1.3 Total Protein 6.7 g/dL 6.3-8.2 WBC 4.4 K/ul 4.1-10.9 eGFR 79.7 mi/minper1.7 54 Laboratory test 01/27/2012 N2N/CCD Import PSA 1.97 ng/mL 0.00-4.00 finding Lipid Panel 07/11/2011 N2N/CCD Import Chol/HDL 3.3 55, 56 Ratio Cholesterol 163 mg/dL 50-199 HDL Cholesterol 48 mg/dL 29-67 LDL 101 mg/dL 20-129 Triglycerides 72 mg/dL 30-249 VLDL Cholesterol 14 mg/dL Laboratory test finding 07/11/2011 N2N/CCD Import A/G Ratio 1.1 1.0-2.2 Absolute Basophils 0.040 K/ul 0.0-0.3 Absolute Eosinophils 0.069 K/ul 0.0-0.5 Absolute Lymphocytes 0.906 K/ul 0.8-4.8 Absolute Monocytes 0.690 K/ul 0.1-1.0 Absolute Neutrophils 3.58 K/ul 2.05-7.63 Albumin 3.5 g/dL 3.5-5.0 Alkaline Phosphatase 51 U/L 30-126 Alt 20 U/L Low 21-72 Ast 20 U/L 17-59 BUN 32 mg/dL High 9-21 BUN/CR Ratio 35.6 Ratio High 12-20 Basophil 0.8 % 0-2 Calcium 9.1 mg/dL 8.7-10.5 Carbon Dioxide 27 mmol/L 22-30 Chloride 105 mmol/L 98-107 Creatinine, Serum 0.9 mg/dL 0.8-1.5 Eosinophil 1.3 % 0-4 Globulin 3.3 g/dL 2.7-4.3 Glucose 89 mg/dL 75-110 Hematocrit 44.7 % 37.0-51.0 Hemoglobin 13.5 GM/dl 12.0-16.0 Lymphocytes 17.1 % Low 20-44 MCH 25.2 pg Low 26.0-32.0 MCHC 30.1 g/dL Low 31.0-36.0 MCV 84 FL 80-97 Monocytes 13.1 % High 2-10.0 Neutrophils 67.7 % 50-70 Platelet Count 216 K/ul 140-440 Potassium 4.9 mmol/L 3.6-5.0 RBC 5.34 M/ul 4.2-6.3 RDW 14.4 % 11.5-14.5 Sodium 142 mmol/L 137-145 TSH 2.916 uIU/ml 0.50-6.00 Total Bilirubin 0.8 mg/dL 0.2-1.3 Total Protein 6.9 g/dL 6.3-8.2 Vitamin D,25-Hydroxy 54.7 ng/mL 30.0-100.0 57 WBC 5.3 K/ul 4.1-10.9 Laboratory test finding 02/01/2011 N2N/CCD Import PSA 1.13 ng/mL 0.00- 4.00 Laboratory test finding 12/24/2010 N2N/CCD Import Anion Gap 9 mEq/L 8- 16 BUN 32 mg/dL High 5-23 BUN/Creat 32.0 Calcium 8.4 mg/dL Low 8.5-10.1 Carbon Dioxide 29 mEq/L 21-32 Chloride 105 mEq/L 98-107 Creatinine 1.0 mg/dL 0.5-1.4 Glom Filtration Rate, Estimate >60 mL/min >60 Glucose 95 mg/dL 76-115 If >60 mL/min >60 58 Potassium 4.4 mEq/L 3.5-5.1 Sodium 139 mEq/L 136-145 Lipid Panel 11/25/2009 N2N/CCD Import Chol/HDL Ratio 3.8 59, 60 Cholesterol 170 mg/dL 50-199 HDL Cholesterol 44 mg/dL 29-67 LDL 117 mg/dL 20-129 Triglycerides 45 mg/dL 30-249 VLDL Cholesterol 9 mg/dL Laboratory test finding 11/25/2009 N2N/CCD Import %Free PSA 16.7 % . 61 A/G Ratio 1.2 1.0-2.2 Absolute Basophils 0.046 K/ul 0.0-0.3 Absolute Eosinophils 0.102 K/ul 0.0-0.5 Absolute Lymphocytes 0.945 K/ul 0.8-4.8 Absolute Monocytes 0.603 K/ul 0.1-1.0 Absolute Neutrophils 2.68 K/ul 2.05-7.63 Albumin 3.8 g/dL 3.5-5.0 Alkaline Phosphatase 61 U/L 30-126 Alt 22 U/L 21-72 Ast 23 U/L 17-59 BUN 27 mg/dL High 9-21 BUN/CR Ratio 28.5 Ratio High 12-20 Basophil 1.1 % 0-2 Calcium 8.9 mg/dL 8.7-10.5 Carbon Dioxide 28 mmol/L 22-30 Chloride 106 mmol/L 98-107 Creatinine, Serum 1.0 mg/dL 0.8-1.5 Eosinophil 2.3 % 0-4 Globulin 3.1 g/dL 2.7-4.3 Glucose 94 mg/dL 75-110 Hematocrit 40.8 % 37.0-51.0 Hemoglobin 12.6 GM/dl 12.0-16.0 Lymphocytes 21.6 % 20-44 MCH 24.3 pg Low 26.0-32.0 MCHC 30.8 g/dL Low 31.0-36.0 MCV 79 FL Low 80-97 Monocytes 13.8 % High 2-10.0 Neutrophils 61.2 % 50-70 PSA,Free 0.20 N/Ang/mL 62 Platelet Count 261 K/ul 140-440 Potassium 4.8 mmol/L 3.6-5.0 Prostate-specific antigen,Seru 1.2 ng/mL 0.0-4.0 63 RBC 5.18 M/ul 4.2-6.3 RDW 14.3 % 11.5-14.5 Sodium 142 mmol/L 137-145 TSH 2.652 uIU/ml 0.50-6.00 Total Bilirubin 0.7 mg/dL 0.2-1.3 Total Protein 6.9 g/dL 6.3-8.2 WBC 4.4 K/ul 4.1-10.9 Lipid Panel 09/19/2008 N2N/CCD Import Chol/HDL Ratio 3.3 64 Cholesterol 166 mg/dL 50-199 HDL Cholesterol 49 mg/dL 29-67 LDL 106 mg/dL 20-129 Triglycerides 55 mg/dL 30-249 VLDL Cholesterol 11 mg/dL Laboratory test finding 09/19/2008 N2N/CCD Import %Free PSA 15.0 % . 65 A/G Ratio 1.2 1.0-2.2 Absolute Basophils 0.073 K/ul 0.0-0.3 Absolute Eosinophils 0.085 K/ul 0.0-0.5 Absolute Lymphocytes 0.938 K/ul 0.8-4.8 Absolute Monocytes 0.701 K/ul 0.1-1.0 Absolute Neutrophils 6.23 K/ul 2.05-7.63 Albumin 3.9 g/dL 3.5-5.0 Alkaline Phosphatase 72 U/L 30-126 Alt 23 U/L 21-72 Anti-Nuclear Antibody(S) Negative AU/mL Negative 66 Ast 24 U/L 17-59 BUN 28 mg/dL High 9-21 BUN/CR Ratio 30.6 Ratio High 12-20 Basophil 0.9 % 0-2 Calcium 9.3 mg/dL 8.7-10.5 Carbon Dioxide 25 mmol/L 22-30 Chloride 108 mmol/L High 98-107 Creatinine, Serum 0.9 mg/dL 0.8-1.5 Eosinophil 1.1 % 0-4 Esr (Sed Rate/Westergren) 5 SEC 0-20 Globulin 3.2 g/dL 2.7-4.3 Glucose 95 mg/dL 75-110 Hematocrit 42.1 % 37.0-51.0 Hemoglobin 12.9 GM/dl 12.0-16.0 Lymphocytes 11.7 % Low 20-44 MCH 24.7 pg Low 26.0-32.0 MCHC 30.6 g/dL Low 31.0-36.0 MCV 81 FL 80-97 Monocytes 8.7 % 2-10.0 Neutrophils 77.6 % High 50-70 PSA,Free 0.24 N/Ang/mL 67 Platelet Count 267 K/ul 140-440 Potassium 4.5 mmol/L 3.6-5.0 Prostate-specific antigen,Seru 1.6 ng/mL 0.0-4.0 68 RBC 5.22 M/ul 4.2-6.3 RDW 14.6 % High 11.5-14.5 Rheumatoid Factor Screen Negative Negative Sodium 141 mmol/L 137-145 TSH 1.929 uIU/ml 0.50-6.00 Total Bilirubin 0.9 mg/dL 0.2-1.3 Total Protein 7.2 g/dL 6.3-8.2 Uric Acid 4.5 mg/dL 2.1-7.4 WBC 8.0 K/ul 4.1-10.9 1 Updated reference range on new analyzer 2 Updated reference range on new analyzer 3 Concerning GFR Guidelines: Normal function or mild renal disease, if clinically at risk: >/=60 mL/min Moderately decreased: 30-59 Severely decreased: 15-29 Renal failure: <15 Glomerular Filtration Rate (GFR) is estimated based on the MDRD equation, which assumes a steady state for creatinine as recommended by the National Kidney Disease Education Program in conjunction with the National Institutes of Health and the National Kidney Foundation. Clinical conditions in which it may be necessary to measure GFR by using clearance methods include extremes of age and body size, severe malnutrition or obesity, diseases of skeletal muscle, paraplegia or quadriplegia, vegetarian diet, rapidly changing kidney function, and calculation of the dose of potentially toxic drugs that are excreted by the kidneys. 4 Concerning GFR Guidelines for Americans: Normal function or mild renal disease, if clinically at risk: >/=60 mL/min Moderately decreased: 30-59 Severely decreased: 15-29 Renal failure: <15 5 Updated Reference Range 6 Per NCEP ATP III Guidelines: Results lower than 40 mg/dL are suggestive of increased risk for coronary artery disease. Results > or=to 60 mg/dL are considered a negative risk factor. 7 Per NCEP ATP III Guidelines: Normal Population <130 Patients with medical conditions: CHD/DM Optimal: <100 Borderline high: 130-159 High: 160-189 Very high: >189 8 Updated reference range on new analyzer 9 Updated reference range on new analyzer 10 Concerning GFR Guidelines: Normal function or mild renal disease, if clinically at risk: >/=60 mL/min Moderately decreased: 30-59 Severely decreased: 15-29 Renal failure: <15 Glomerular Filtration Rate (GFR) is estimated based on the MDRD equation, which assumes a steady state for creatinine as recommended by the National Kidney Disease Education Program in conjunction with the National Institutes of Health and the National Kidney Foundation. Clinical conditions in which it may be necessary to measure GFR by using clearance methods include extremes of age and body size, severe malnutrition or obesity, diseases of skeletal muscle, paraplegia or quadriplegia, vegetarian diet, rapidly changing kidney function, and calculation of the dose of potentially toxic drugs that are excreted by the kidneys. 11 Concerning GFR Guidelines for Americans: Normal function or mild renal disease, if clinically at risk: >/=60 mL/min Moderately decreased: 30-59 Severely decreased: 15-29 Renal failure: <15 12 Updated Reference Range 13 Per NCEP ATP III Guidelines: Results lower than 40 mg/dL are suggestive of increased risk for coronary artery disease. Results > or=to 60 mg/dL are considered a negative risk factor. 14 Per NCEP ATP III Guidelines: Normal Population <130 Patients with medical conditions: CHD/DM Optimal: <100 Borderline high: 130-159 High: 160-189 Very high: >189 15 Beginning 07/31/06 PSA values assayed at [facility] [employer] uses chemiluminescence methodology manufactured by [employer] for use on the DXI analyzer. Values obtained with different assay methods or kits can not be used interchangeably. Serum PSA measurement is not an absolute test for malignancy. The PSA value should be used in conjunction with information available from clinical evaluation and other diagnostic procedures. 16 Updated reference range on new analyzer 17 Updated reference range on new analyzer 18 Concerning GFR Guidelines: Normal function or mild renal disease, if clinically at risk: >/=60 mL/min Moderately decreased: 30-59 Severely decreased: 15-29 Renal failure: <15 Glomerular Filtration Rate (GFR) is estimated based on the MDRD equation, which assumes a steady state for creatinine as recommended by the National Kidney Disease Education Program in conjunction with the National Institutes of Health and the National Kidney Foundation. Clinical conditions in which it may be necessary to measure GFR by using clearance methods include extremes of age and body size, severe malnutrition or obesity, diseases of skeletal muscle, paraplegia or quadriplegia, vegetarian diet, rapidly changing kidney function, and calculation of the dose of potentially toxic drugs that are excreted by the kidneys. 19 Concerning GFR Guidelines for Americans: Normal function or mild renal disease, if clinically at risk: >/=60 mL/min Moderately decreased: 30-59 Severely decreased: 15-29 Renal failure: <15 20 Updated reference range on new analyzer 21 Per NCEP ATP III Guidelines: Results lower than 40 mg/dL are suggestive of increased risk for coronary artery disease. Results > or=to 60 mg/dL are considered a negative risk factor. 22 Per NCEP ATP III Guidelines: Normal Population <130 Patients with medical conditions: CHD/DM Optimal: <100 Borderline high: 130-159 High: 160-189 Very high: >189 23 Updated reference range on new analyzer 24 Updated reference range on new analyzer 25 Concerning GFR Guidelines: Normal function or mild renal disease, if clinically at risk: >/=60 mL/min Moderately decreased: 30-59 Severely decreased: 15-29 Renal failure: <15 Glomerular Filtration Rate (GFR) is estimated based on the MDRD equation, which assumes a steady state for creatinine as recommended by the National Kidney Disease Education Program in conjunction with the National Institutes of Health and the National Kidney Foundation. Clinical conditions in which it may be necessary to measure GFR by using clearance methods include extremes of age and body size, severe malnutrition or obesity, diseases of skeletal muscle, paraplegia or quadriplegia, vegetarian diet, rapidly changing kidney function, and calculation of the dose of potentially toxic drugs that are excreted by the kidneys. 26 Concerning GFR Guidelines for Americans: Normal function or mild renal disease, if clinically at risk: >/=60 mL/min Moderately decreased: 30-59 Severely decreased: 15-29 Renal failure: <15 27 Updated reference range on new analyzer 28 Per NCEP ATP III Guidelines: Results lower than 40 mg/dL are suggestive of increased risk for coronary artery disease. Results > or=to 60 mg/dL are considered a negative risk factor. 29 Per NCEP ATP III Guidelines: Normal Population <130 Patients with medical conditions: CHD/DM Optimal: <100 Borderline high: 130-159 High: 160-189 Very high: >189 30 Concerning GFR Guidelines: Normal function or mild renal disease, if clinically at risk: >/=60 mL/min Moderately decreased: 30-59 Severely decreased: 15-29 Renal failure: <15 Glomerular Filtration Rate (GFR) is estimated based on the MDRD equation, which assumes a steady state for creatinine as recommended by the National Kidney Disease Education Program in conjunction with the National Institutes of Health and the National Kidney Foundation. Clinical conditions in which it may be necessary to measure GFR by using clearance methods include extremes of age and body size, severe malnutrition or obesity, diseases of skeletal muscle, paraplegia or quadriplegia, vegetarian diet, rapidly changing kidney function, and calculation of the dose of potentially toxic drugs that are excreted by the kidneys. 31 Concerning GFR Guidelines for Americans: Normal function or mild renal disease, if clinically at risk: >/=60 mL/min Moderately decreased: 30-59 Severely decreased: 15-29 Renal failure: <15 32 Per NCEP ATP III Guidelines: Results lower than 40 mg/dL are suggestive of increased risk for coronary artery disease. Results > or=to 60 mg/dL are considered a negative risk factor. 33 Per NCEP ATP III Guidelines: Normal Population <130 Patients with medical conditions: CHD/DM Optimal: <100 Borderline high: 130-159 High: 160-189 Very high: >189 34 Concerning GFR Guidelines: Normal function or mild renal disease, if clinically at risk: >/=60 mL/min Moderately decreased: 30-59 Severely decreased: 15-29 Renal failure: <15 Glomerular Filtration Rate (GFR) is estimated based on the MDRD equation, which assumes a steady state for creatinine as recommended by the National Kidney Disease Education Program in conjunction with the National Institutes of Health and the National Kidney Foundation. Clinical conditions in which it may be necessary to measure GFR by using clearance methods include extremes of age and body size, severe malnutrition or obesity, diseases of skeletal muscle, paraplegia or quadriplegia, vegetarian diet, rapidly changing kidney function, and calculation of the dose of potentially toxic drugs that are excreted by the kidneys. 35 Concerning GFR Guidelines for Americans: Normal function or mild renal disease, if clinically at risk: >/=60 mL/min Moderately decreased: 30-59 Severely decreased: 15-29 Renal failure: <15 36 Per NCEP ATP III Guidelines: Results lower than 40 mg/dL are suggestive of increased risk for coronary artery disease. Results > or=to 60 mg/dL are considered a negative risk factor. 37 Per NCEP ATP III Guidelines: Normal Population <130 Patients with medical conditions: CHD/DM Optimal: <100 Borderline high: 130-159 High: 160-189 Very high: >189 38 please send copy to Dr. Dyer 39 Concerning GFR Guidelines: Normal function or mild renal disease, if clinically at risk: >/=60 mL/min Moderately decreased: 30-59 Severely decreased: 15-29 Renal failure: <15 Glomerular Filtration Rate (GFR) is estimated based on the MDRD equation, which assumes a steady state for creatinine as recommended by the National Kidney Disease Education Program in conjunction with the National Institutes of Health and the National Kidney Foundation. Clinical conditions in which it may be necessary to measure GFR by using clearance methods include extremes of age and body size, severe malnutrition or obesity, diseases of skeletal muscle, paraplegia or quadriplegia, vegetarian diet, rapidly changing kidney function, and calculation of the dose of potentially toxic drugs that are excreted by the kidneys. 40 Concerning GFR Guidelines for Americans: Normal function or mild renal disease, if clinically at risk: >/=60 mL/min Moderately decreased: 30-59 Severely decreased: 15-29 Renal failure: <15 41 Concerning GFR Guidelines: Normal function or mild renal disease, if clinically at risk: >/=60 mL/min Moderately decreased: 30-59 Severely decreased: 15-29 Renal failure: <15 Glomerular Filtration Rate (GFR) is estimated based on the MDRD equation, which assumes a steady state for creatinine as recommended by the National Kidney Disease Education Program in conjunction with the National Institutes of Health and the National Kidney Foundation. Clinical conditions in which it may be necessary to measure GFR by using clearance methods include extremes of age and body size, severe malnutrition or obesity, diseases of skeletal muscle, paraplegia or quadriplegia, vegetarian diet, rapidly changing kidney function, and calculation of the dose of potentially toxic drugs that are excreted by the kidneys. 42 Concerning GFR Guidelines for Americans: Normal function or mild renal disease, if clinically at risk: >/=60 mL/min Moderately decreased: 30-59 Severely decreased: 15-29 Renal failure: <15 43 Per NCEP ATP III Guidelines: Results lower than 40 mg/dL are suggestive of increased risk for coronary artery disease. Results > or=to 60 mg/dL are considered a negative risk factor. 44 Per NCEP ATP III Guidelines: Normal Population <130 Patients with medical conditions: CHD/DM Optimal: <100 Borderline high: 130-159 High: 160-189 Very high: >189 45 TROPONIN LEVELS TWO TIMES THE UPPER LIMIT OF NORMAL ARE MORE PREDICTIVE OF MYOCARDIAL INJURY THAN LESSER ELEVATIONS. ([facility] 361:9, 2009) Unless otherwise specified, testing performed by [facility] [place] [address] 46 Unless otherwise specified, testing performed by [facility] [place] [address] 47 Note: Persistent reduction for 3 months or more in an eGFR <60 mL/min/1.73 m2 defines CKD. Patients with eGFR values >/=60 mL/min/1.73 m2 may also have CKD if evidence of persistent proteinuria is present. The original MDRD equation for estimated GFR is not valid for patients less than 18 years of age. Additional information may be found at www.kdoqi.org. 48 Antibodies to HCV not detected; does not exclude early acute HCV infection. 49 Reference Guidelines*: Desirable: ........... < 200 mg/dL Borderline High: ..... 200-239 mg/dL High: ................ >=240 mg/dL * The National Cholesterol Education Program (NCEP) 50 Reference Guidelines*: Low HDL: ..... < 40 mg/dL Normal: ..... 40-60 mg/dL Desirable: ... > 60 mg/dL *The National Cholesterol Education Program(NCEP) 51 Reference Guidelines*: Optimal:........... <100 mg/dL Near Optimal....... 100-129 mg/dL Borderline High.... 130-159 mg/dL High............... 160-189 mg/dL Very High.......... >=190 mg/dL * Source: National Cholesterol Education Program ( NCEP) 52 Reference Guidelines*: Normal: ............. < 150 mg/dL Borderline High: .... 150-199 mg/dL High: ............... 200-499 mg/dL Very High: .......... > 500 mg/dL * Source: National Cholesterol Education Program (NCEP) 53 For -Syrian patients multiply result by 1.180 54 For -Syrian patients multiply result by 1.180 55 SCHEDULE BEFORE 01/2012 F/U 56 Normal Range: Male: <4.98 Female: <4.45 57 Vitamin D deficiency has been defined by the [place] [employer] and an Endocrine Society practice guideline as a level of serum 25-OH vitamin D less than 20 ng/mL (1,2). The Endocrine Society went on to further define vitamin D insufficiency as a level between 21 and 29 ng/mL (2). 1. IOM ([place] [employer]). 2011. Dietary reference intakes for calcium and D. [place]: The National Academies Press. 2. Manjinder MF, Chad VIRGEN, Naren JENSEN, et al. Evaluation, treatment, and prevention of vitamin D deficiency: an Endocrine Society clinical practice guideline. JCEM. 2010; 96(7):1911-30. Performed at: [facility] [id number] [place]: Gerard Roth MD, Phone: [phone] Note: Persistent reduction for 3 months or more in an eGFR <60 mL/min/1.73 m2 defines CKD. Patients with eGFR values >/=60 mL/min/1.73 m2 may also have CKD if evidence of persistent proteinuria is present. The original MDRD equation for estimated GFR is not valid for patients less than 18 years of age. Additional information may be found at www.kdoqi.org. 59 FASTING 60 Normal Range: Male: <4.98 Female: <4.45 61 The table below lists the probability of prostate cancer for men with non-suspicious CHOLO results and total PSA between 4 and 10 ng/mL, by patient age (Catalona et al, CANDY 1998, 279:1542). % Free PSA 50-64 yr 65-75 yr 0.00- 10.00% 56% 55% 10.01-15.00% 24% 35% 15.01-20.00% 17% 23% 20.01-25.00% 10% 20% > 25.00% 5% 9% Please note: Catalona et al did not make specific recommendations regarding the use of percent free PSA for any other population of men. Performed at: - [facility] [id number] [place] And Baker: Gerard Roth MD, Phone: [phone] 62 Ori ECLIA methodology. 63 Ori ECLIA methodology. According to the [employer], Serum PSA should decrease and remain at undetectable levels after radical prostatectomy. The AUA defines biochemical recurrence as an initial PSA value 0.2 ng/mL or greater followed by a subsequent confirmatory PSA value 0.2 ng/mL or greater. Values obtained with different assay methods or kits cannot be used interchangeably. Results cannot be interpreted as absolute evidence of the presence or absence of malignant disease. 64 Normal Range: Male: <4.98 Female: <4.45 65 The table below lists the probability of prostate cancer for men with non-suspicious CHOLO results and total PSA between 4 and 10 ng/mL, by patient age (Catalona et al, CANDY 1998, 279:1542). % Free PSA 50-64 yr 65-75 yr 0.00- 10.00% 56% 55% 10.01-15.00% 24% 35% 15.01-20.00% 17% 23% 20.01-25.00% 10% 20% > 25.00% 5% 9% Please note: Rose et al did not make specific recommendations regarding the use of percent free PSA for any other population of men. 66 Please note reference interval change 67 Ori ECLIA methodology. 68 Ori ECLIA methodology. According to the [employer], PSA should be undetectable after radical prostatectomy. A PSA of less than 0.5 ng /mL (or undetectable) is not likely to be associated with disease recurrence within five years of treatment. Values obtained with different assay methods or kits cannot be used interchangeably. Results cannot be interpreted as absolute evidence of the presence or absence of malignant disease. Procedures Date Code Description Status 08/09/2018 76985 ECHO Transthoracis 2D W Spectral Doppler Completed 08/02/2018 69160 Electrocardiogram Complete Completed 10/07/2016 96646 Electrocardiogram Complete Completed 07/02/2015 16671 Electrocardiogram Complete Completed 09/18/2014 09808 Measure Blood Oxygen Level Single Determination Completed 08/18/2014 77871 X-Ray Shoulder Complete Completed 05/07/2014 96957 Electrocardiogram Complete Completed 10/31/2013 42289 Electrocardiogram Complete Completed 09/11/2012 86769 Doppler Echocardiography Complete Completed 09/11/2012 56674 Doppler Color Flow Velocity Mapping Completed 09/11/2012 46584 ECHO Transthoracic Inc Performance Continuous Completed Electrocardio 01/27/2012 38659 Visual Screening Test Completed 01/27/2012 07431 Screening Hearing Test Completed 10/26/2011 04398 Electrocardiogram Complete Completed 10/05/2010 10529 Colonoscopy Flexible Diagnostic Completed 10/05/2010 04658207 Colonoscopy Completed 10/22/2008 25056 Electrocardiogram Complete Completed Encounters Type Date Location Provider Dx Diagnosis Office Visit 08/09/2018 Natan Diaz, I48.1 Persistent atrial 1:45p Cardiology fibrillation I42.9 Cardiomyopathy, unspecified I11.9 Hypertensive heart disease without heart failure I34.0 Nonrheumatic mitral (valve) insufficiency I49.3 Ventricular premature depolarization Z68.34 Body mass index (BMI) 34.0-34.9, adult Office Visit 08/02/2018 Akilah Garcia Z01.810 Encounter for 10:45a Cardiology MD Natan preprocedural cardiovascular examination I48.1 Persistent atrial fibrillation I11.9 Hypertensive heart disease without heart failure I49.3 Ventricular premature depolarization Office Visit 06/25/2018 9:45a [facility] Jose Boland, DO R00.2 Palpitations I26.99 Other pulmonary embolism without acute cor pulmonale E78.2 Mixed hyperlipidemia M75.122 Complete rotatr-cuff tear/ruptr of LEFT shoulder, not trauma G25.81 Restless legs syndrome E66.09 Other obesity due to excess calories J30.81 Allergic rhinitis due to animal (cat) (dog) hair and dander K21.9 Gastro-esophageal reflux disease without esophagitis I10 Essential (primary) hypertension Z12.5 Encounter for screening for malignant neoplasm of prostate Z68.34 Body mass index (BMI) 34.0-34.9, adult Office Visit 12/20/2017 8:30a [facility] Jose Boland DO I10 Essential ( primary) hypertension E78.2 Mixed hyperlipidemia M75.122 Complete rotatr-cuff tear/ruptr of LEFT shoulder, not trauma G25.81 Restless legs syndrome E66.09 Other obesity due to excess calories J30.81 Allergic rhinitis due to animal (cat) (dog) hair and dander I26.99 Other pulmonary embolism without acute cor pulmonale K21.9 Gastro-esophageal reflux disease without esophagitis Z68.34 Body mass index (BMI) 34.0-34.9, adult Office Visit 08/28/2017 11:00a [facility] Jose I11.9 Hypertensive heart Cardiology MD Natan disease without heart failure I44.0 Atrioventricular block, first degree I49.3 Ventricular premature depolarization I49.1 Atrial premature depolarization Office Visit 06/22/2017 9:45a [facility] Jose Boland, I10 Essential ( primary) hypertension E78.2 Mixed hyperlipidemia M75.122 Complete rotatr-cuff tear/ruptr of LEFT shoulder, not trauma G25.81 Restless legs syndrome E66.09 Other obesity due to excess calories J30.81 Allergic rhinitis due to animal (cat) (dog) hair and dander I26.99 Other pulmonary embolism without acute cor pulmonale K21.9 Gastro-esophageal reflux disease without esophagitis Z12.5 Encounter for screening for malignant neoplasm of prostate Office Visit 12/20/2016 9:00a [facility] Jose Boland DO I10 Essential ( primary) hypertension E78.2 Mixed hyperlipidemia I26.99 Other pulmonary embolism without acute cor pulmonale M75.122 Complete rotatr-cuff tear/ruptr of LEFT shoulder, not trauma G25.81 Restless legs syndrome E66.09 Other obesity due to excess calories J30.81 Allergic rhinitis due to animal (cat) (dog) hair and dander Office Visit 10/07/2016 11:15a [facility], I11.9 Hypertensive heart Cardiology MD Natan disease without heart failure I44.0 Atrioventricular block, first degree I49.3 Ventricular premature depolarization I49.1 Atrial premature depolarization Office Visit 06/22/2016 9:45a [facility] Jose Boland, DO I10 Essential ( primary) hypertension I26.99 Other pulmonary embolism without acute cor pulmonale M75.122 Complete rotatr-cuff tear/ruptr of LEFT shoulder, not trauma E78.2 Mixed hyperlipidemia G25.81 Restless legs syndrome E66.09 Other obesity due to excess calories J30.81 Allergic rhinitis due to animal (cat) (dog) hair and dander B35.1 Tinea unguium M25.559 Pain in unspecified hip Office Visit 02/03/2016 8:00a [facility], I11.9 Hypertensive heart Cardiology MD Natan disease without heart failure I44.0 Atrioventricular block, first degree I49.3 Ventricular premature depolarization I20.1 Angina pectoris with documented spasm Office Visit 12/17/2015 8:15a [facility] Jose Boland DO I26.99 Other pulmonary embolism without acute cor pulmonale M75.122 Complete rotatr-cuff tear/ruptr of LEFT shoulder, not trauma I10 Essential (primary) hypertension E78.2 Mixed hyperlipidemia G25.81 Restless legs syndrome E66.09 Other obesity due to excess calories J30.81 Allergic rhinitis due to animal (cat) (dog) hair and dander T40.2x5D Adverse effect of other opioids, subsequent encounter B35.1 Tinea unguium G56.02 Carpal tunnel syndrome, LEFT upper limb M25.559 Pain in unspecified hip Office Visit 09/29/2015 9:30a [facility] Jose Boland DO I26.99 Other pulmonary embolism without acute cor pulmonale M75.122 Complete rotatr-cuff tear/ruptr of LEFT shoulder, not trauma I10 Essential (primary) hypertension E78.2 Mixed hyperlipidemia G25.81 Restless legs syndrome E66.09 Other obesity due to excess calories J30.81 Allergic rhinitis due to animal (cat) (dog) hair and dander T40.2x5D Adverse effect of other opioids, subsequent encounter B35.1 Tinea unguium J02.0 Streptococcal pharyngitis G56.02 Carpal tunnel syndrome, LEFT upper limb Office Visit 08/03/2015 9:45a [facility] Jose, I11.9 Hypertensive heart Cardiology MD Natan disease without heart failure I44.0 Atrioventricular block, first degree I49.3 Ventricular premature depolarization I26.99 Other pulmonary embolism without acute cor pulmonale Office Visit 07/02/2015 3:00p [facility] Natan Garcia I26.99 Other pulmonary Cardiology MD embolism without acute cor pulmonale I11.9 Hypertensive heart disease without heart failure I44.0 Atrioventricular block, first degree I49.3 Ventricular premature depolarization Office Visit 06/29/2015 8:15a [facility] Jose Boland DO I26.99 Other pulmonary embolism without acute cor pulmonale M75.122 Complete rotatr-cuff tear/ruptr of LEFT shoulder, not trauma I10 Essential (primary) hypertension E78.2 Mixed hyperlipidemia G25.81 Restless legs syndrome E66.09 Other obesity due to excess calories J30.81 Allergic rhinitis due to animal (cat) (dog) hair and dander T40.2x5D Adverse effect of other opioids, subsequent encounter B35.1 Tinea unguium Office Visit 06/10/2015 10:15a [facility] Jose Boland DO I26.99 Other pulmonary embolism without acute cor pulmonale M75.122 Complete rotatr-cuff tear/ruptr of LEFT shoulder, not trauma I10 Essential (primary) hypertension E78.2 Mixed hyperlipidemia G25.81 Restless legs syndrome E66.09 Other obesity due to excess calories J30.81 Allergic rhinitis due to animal (cat) (dog) hair and dander M79.605 Pain in LEFT leg T40.2x5D Adverse effect of other opioids, subsequent encounter Office Visit 05/06/2015 10:30a [facility] Jose Boland DO Z01.810 Encounter for preprocedural cardiovascular examination M75.122 Complete rotatr-cuff tear/ruptr of LEFT shoulder, not trauma I10 Essential (primary) hypertension E78.2 Mixed hyperlipidemia G25.81 Restless legs syndrome E66.09 Other obesity due to excess calories J30.81 Allergic rhinitis due to animal (cat) (dog) hair and dander R07.9 Chest pain, unspecified Office Visit 12/26/2014 8:30a [facility] Jose Boland DO 719.41 Pain Joint Shoulder Region 786.50 Pain Chest Unspec 401.1 Hypertension Benign 272.2 Hyperlipidemia Mixed 333.94 Restless Leg Syndrome 278.00 Obesity Unspec 477.2 Allergic Rhinitis Cat/Dog Office Visit 12/03/2014 7:30a Natan Diaz, 413.1 Angina Cardiology MD [place] 402.10 Hypertensive Heart Disease Benign W/O Heart Failure 426.11 Atrioventricular Block First Degree 427.69 Premature Beats Other Office Visit 10/06/2014 2:00p Natan Diaz 786.50 Pain Chest Cardiology MD [place] 402.10 Hypertensive Heart Disease Benign W/O Heart Failure 426.11 Atrioventricular Block First Degree 427.69 Premature Beats Other Office Visit 09/18/2014 9:45a [facility] Jose Boland DO 461.9 Sinusitis Acute Unspec 719.41 Pain Joint Shoulder Region Office Visit 08/18/2014 10:15a [facility] Jose Boland DO 719.41 Pain Joint Shoulder Region 782.0 Skin Sensation Disturbance 892.0 Open Wound Foot Except Toe(S) Alone W/O Complication 786.50 Pain Chest Unspec Office Visit 07/23/2014 3:15p [facility] Krystian 786.50 Pain Chest Unspec DO Jose Office Visit 10/31/2013 11:00a Akilah Garcia 402.10 Hypertensive Heart Cardiology MD Natan Disease Benign W/O Heart Failure 426.11 Atrioventricular Block First Degree 427.69 Premature Beats Other Office Visit 09/11/2012 Akilah Garcia 402.10 Hypertensive Heart 10:45a Cardiology MD Natan Disease Benign W/O Heart Failure 426.11 Atrioventricular Block First Degree 427.69 Premature Beats Other Office Visit 10/26/2011 Akilah Garcia 402.10 Hypertensive Heart 10:45a Cardiology MD Natan Disease Benign W/O Heart Failure 424.0 Mitral Valve Disorder 427.69 Premature Beats Other 426.11 Atrioventricular Block First Degree Plan of Treatment Future Appointment(s):11/21/2018 11:15 am - Natan Garcia MD at [facility]12/31/2018 8:15 am - Jose Boland DO at [facility]12/24/2018 7:35 am - Schedule, Laboratory at [facility]08/17/2018 - Jose Boland DOZ01.810 Encounter for preprocedural cardiovascular abkagmojvlcE96.12 Unilateral primary osteoarthritis , LEFT kneeI26.99 Other pulmonary embolism without acute cor vgclisvpyZ25.2 Mixed yidfhqdrxpowggI23.122 Complete rotator cuff tear or rupture of LEFT shoulder, notG25.81 Restless legs syndromeNew Orders:Oxygen, Ordered: E66.09 Other obesity due to excess dxtkvxmnL30.81 Allergic rhinitis due to animal (cat) (dog) hair and pscdcsT80.9 Gastro-esophageal reflux disease without wojhzhkhuhbL00 Essential (primary) qxchqhscqjgvG79.91 Unspecified atrial amowfxfsbuvnI16.02 HypoxemiaNew Orders:Oxygen, Ordered: 08/17/18Z68.34 Body mass index (BMI) 34.0-34.9, adult
--- OUTSIDE RECORDS SUMMARY | 2018-08-23 12:05 | XMS REPORT | Continuity of Care Document ---
:1950 External Reference #:[id number] Author Name Makenna Wright Care Team Providers Name Role Phone Jose Boland DO Primary Care Physician Unavailable Payers Date Identification Numbers Payment Provider Subscriber Expires: 2018 Policy Number: [id number] BS Of [employer]IV[employer] Mickey Ray Group Number: [id number] Pay[address]: [id number] [address] Effective: 2018 Policy Number: [id number] BS Facets Mickey Ray PayID: [id number] [address] [address] Advance Directives Description No Information Available Problems Date Description Provider Status Onset: 07/25/2018 Localized, primary osteoarthritis Lynne Silva M.D. 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 Tobacco Use Start: Unknown Never Smoked Cigarettes Smoking Status Reviewed: 07/25/18 Never Smoked Cigarettes ETOH Use Consumes liquor once daily Tobacco Use Start: Unknown Patient has never smoked Recreational Drug Use Denies Drug Use Exercise Type/Frequency Exercises regularly Allergies, Adverse Reactions, Alerts Date Description Reaction Status Severity Comments 07/02/2018 Tetracycline Active 07/02/2018 Oxycodone Active Medications Medication Date Status Form Strength Qnty SIG Indications Ordering Provider Xarelto Active Tablets 20mg 1 tab Boland, 000 daily by Jose, mouth DO Omeprazole Active Capsules DR 20mg 1 cap by Krystian, 000 mouth in Jose, am DO Alprazolam Active Tablets 1mg 1 tab by Krystian, 000 mouth in [facility], pm DO Amlodipine Active Tablets 5mg 1 tab Jose, Besylate 000 daily by MD Natan mouth Metoprolol Active Tablets ER 25mg 1 tab by Jose, Succinate ER 000 24HR mouth MD Natan twice daily Mometasone Active Suspension 50mcg/Act 2 sprays Krystian, Furoate 000 in nose Jose, in am DO Medications Administered in Office Medication Date Status Form Strength Qnty SIG Indications Ordering Provider Allergy Administered Injection Cameron Injection - 994 Tai MD Shannan Allergy Administered Injection Cameron Injection - 994 Tai MD Shannan Allergy Administered Injection Cameron Injection - 994 Tai MD Shannan Allergy Administered Injection Cameron Injection - 994 Tai MD Shannan Allergy Administered Injection Cameron Injection - 994 Tai MD Shannan Allergy Administered Injection Cameron Injection - 994 Zaire Campbell MD Immunizations Description No Information Available Vital Signs Date Vital Result Comment 07/25/2018 11:33am Height 70 inches 5'10" Weight 224.00 lb Heart Rate 76 /min BP Systolic 108 mmHg BP Diastolic 68 mmHg BMI (Body Mass Index) 32.1 kg/m2 07/02/2018 1:08pm Height 70 inches 5'10" Weight 228.00 lb Heart Rate 90 /min BP Systolic Sitting 118 mmHg R BP Diastolic Sitting 84 mmHg R Respiratory Rate 12 /min Pain Level 4 BMI (Body Mass Index) 32.7 kg/m2 Results Description No Information Available Procedures Date Code Description Status 07/02/2018 74432 Inject/Drain Joint/Bursa Major W/O US Completed 10/28/1993 03719 Intramuscular Injection Completed 10/26/1993 86356 Allergy Injection - Multiple Completed 10/14/1993 67306 Allergy Injection - Multiple Completed 09/20/1993 13506 Allergy Injection - Multiple Completed 09/10/1993 39907 Allergy Injection - Multiple Completed 08/13/1993 02464 Allergy Injection - Multiple Completed 07/01/1993 85958 Allergy Injection - Multiple Completed Encounters Type Date Location Provider Dx Diagnosis Office Visit 07/25/2018 [facility] Lynne Silva M25.562 Pain in left knee 11:00a [facility] M17.12 Unilateral primary osteoarthritis, left knee M25.462 Effusion, left knee Plan of Treatment Future Appointment(s):08/23/2018 3:30 pm - JAIR Bains at [facility]Tanya08/23/2018 3:30 pm [facility] - Lynne Silva M.D.M25.562 Pain in left kneeFollow up:Follow up: 2 weeks after sbsntrwF28.12 Unilateral primary osteoarthritis, left kneeM25.462 Effusion, left knee
--- OUTSIDE RECORDS SUMMARY | 2018-08-23 12:05 | XMS REPORT | Continuity of Care Document ---
:1950 External Reference #:[id number] Author Name Makenna Wright Care Team Providers Name Role Phone Jose Boland DO Primary Care Physician Unavailable Payers Date Identification Numbers Payment Provider Subscriber Expires: 2018 Policy Number: [id number] [employer] Mickey Barth Group Number: [id number] PayID: [id number] [address] [address] Effective: 2018 Policy Number: [id number] Facets Mickey Barth PayID: [id number] [address] [address] Advance Directives Description No Information Available Problems [...] Marital Status Lives With Occupation [employer] Occupation [employer] Tobacco Use Start: Unknown Never Smoked Cigarettes [...] Active Capsules DR 20mg 1 cap by Boland, 000 mouth in Jose, am DO Alprazolam Active Tablets 1mg 1 tab by Krystian, 000 mouth in Jose, pm DO Amlodipine Active Tablets 5mg 1 tab Jose, Besylate 000 daily by MD Natan mouth Metoprolol Active Tablets ER 25mg 1 tab by Jose, Succinate ER 000 24HR mouth MD Natan twice daily Mometasone Active Suspension 50mcg/Act 2 sprays Krystian Furoate 000 in nose Jose, in am DO Medications Administered in Office Medication Date Status Form Strength Qnty SIG Indications Ordering Provider Allergy Administered Injection Cameron Injection - 994 Tai Shannan , Allergy Administered Injection Cameron Injection - 994 Tai MD Shannan Allergy Administered Injection Cameron Injection - 994 Tai MD Shannan Allergy Administered Injection Cameron Injection - 994 Tai MD Shannan Allergy Administered Injection Cameron Injection - 994 Tai MD Shannan Allergy Administered Injection Cameron Injection - 994 Tai MD Shannan Immunizations Description No Information Available Vital Signs [...] Available Procedures Date Code Description Status 07/02/2018 26777 Inject/Drain Joint/Bursa Major W/O US Completed 10/28/1993 90900 Intramuscular Injection Completed 10/26/1993 69035 Allergy Injection - Multiple Completed 10/14/1993 91476 Allergy Injection - Multiple Completed 09/20/1993 91105 Allergy Injection - Multiple Completed 09/10/1993 44228 Allergy Injection - Multiple Completed 08/13/1993 67807 Allergy Injection - Multiple Completed 07/01/1993 00110 Allergy Injection - Multiple Completed Encounters Description No Information Available Plan of Treatment Future Appointment(s):08/10/2018 11:30 am - Lynne [facility] M.D. at [facility]07/25/2018 - Lynne Silva M.D.M25.562 Pain in left kneeNew Xrays:Knee Left 1-2 VWS, Ordered: 07/25/18Follow up:Follow up: 7-10 days before haxgkqjI86.12 Unilateral primary osteoarthritis, left kneeM25.462 Effusion, left knee
[2018-08-23] MEDS ORDERED: celeCOXIB CAP* 100 MG ONE (12:27)
[2018-08-23] MEDS ORDERED: Gabapentin CAP(*) 300 MG ONE (12:27)
[2018-08-23] MEDS ORDERED: Dexamethasone IV* 4 MG/ML 1 ML (4 MG) ONE (12:27)
[2018-08-23] MEDS ORDERED: Famotidine TAB* 20 MG ONE (12:28)
[2018-08-23] MEDS ORDERED: Acetaminophen TAB* 325 MG ONE (12:28)
[2018-08-23] MEDS ORDERED: ceFAZolin 2 GM in NS PREMIX(*) 2 GM/100 ML BAG IVPB ONE (12:28)
[2018-08-23] MEDS ORDERED: Propofol* 10 MG/ML 20 ML BTL ONE (12:53)
[2018-08-23] MEDS ORDERED: Etomidate* 2 MG/ML 10 ML VIAL ONE (12:54)
[2018-08-23] MEDS ORDERED: Rocuronium* 10 MG/ML VIAL ONE ×2 (12:57→14:53)
[2018-08-23] MEDS ORDERED: Midazolam* 1 MG/ML 2 ML VIAL (2 MG) ONE (12:58)
[2018-08-23] MEDS ORDERED: fentaNYL* 50 MCG/ML 2 ML VIAL (100 MCG VIAL) ONE (12:58)
[2018-08-23] MEDS ORDERED: ROPIVACAINE 5 MG/ML 30 ML BTL (0.5%) ONE ×2 (13:51→13:59)
[2018-08-23] MEDS ORDERED: Lidocaine 1%* 5 ML VIAL ONE (13:58)
[2018-08-23] MEDS ORDERED: HYDROmorphone INJ1* 1 MG/ML SYRINGE ONE ×2 (14:43→15:10)
[2018-08-23] MEDS ORDERED: fentaNYL* 50 MCG/ML 2 ML VIAL (100 MCG VIAL) IV PRN (15:18)
[2018-08-23] MEDS ORDERED: Ketorolac INJ* 30 MG/ML 1 ML VIAL IV PRN (15:18)
[2018-08-23] MEDS ORDERED: Acetaminophen IV 1GM/100ML * 1,000 MG/100 ML VIAL IVPB ONE (15:18)
[2018-08-23] MEDS ORDERED: Naloxone* 0.4 MG/ML 1 ML VIAL IV PRN (15:18)
[2018-08-23] MEDS ORDERED: DiMENhydriNATE IV* 50 MG/ML VIAL IV PUSH PRN (15:18)
[2018-08-23] MEDS ORDERED: HYDROmorphone INJ1* 1 MG/ML SYRINGE IV PRN (15:18)
[2018-08-23] MEDS ORDERED: Phenylephrine 40 MCG/ML SYRINGE ONE (15:53)
[2018-08-23] MEDS ORDERED: Sugammadex * 200 MG/2 ML VIAL IV PUSH ONE (16:17)
[2018-08-23] MEDS ORDERED: Ondansetron INJ* 2 MG/ML VIAL ONE (16:19)
[2018-08-23] MEDS ORDERED: Ketorolac INJ* 30 MG/ML 1 ML VIAL ONE (16:42)
[2018-08-23] MEDS ORDERED: Acetaminophen IV 1GM/100ML * 100 ML ONE (16:42)
[2018-08-23] MEDS ORDERED: Cyclobenzaprine TAB* 10 MG PO PRN (16:57)
[2018-08-23] MEDS ORDERED: oxyCODONE/Acetamin 5/325 MG* TAB PO PRN ×2 (16:57→17:07)
[2018-08-23] MEDS ORDERED: Magnesium Hydroxide LIQ* 30 ML UDC PO PRN (16:57)
[2018-08-23] MEDS ORDERED: Polyethylene Glycol 3350* 17 GM PACKET PO PRN (16:57)
[2018-08-23] MEDS ORDERED: Ondansetron INJ* 2 MG/ML VIAL IV PRN (16:57)
[2018-08-23] MEDS ORDERED: Bisacodyl SUPP* 10 MG SUPP PR PRN (16:57)
[2018-08-23] MEDS ORDERED: diPHENhydraMINE PO* 25 MG PO PRN (16:57)
[2018-08-23] MEDS ORDERED: Morphine 4 MG/ML VIAL (1 ml) 4 MG/ML VIAL IV PRN (16:57)
[2018-08-23] MEDS ORDERED: traMADol TAB* 50 MG PO PRN (16:57)
[2018-08-23] MEDS ORDERED: oxyCODONE TAB* 5 MG TAB PO PRN (16:57)
[2018-08-23] MEDS ORDERED: diPHENhydraMINE IV* 50 MG/ML 1 ml VIAL (BENADRYL) IV PRN (16:57)
[2018-08-23] MEDS ORDERED: Lactated Ringers 1000 ML Bag* 1,000 ML IV SCH (17:00)
--- NOTE | 2018-08-23 17:44 | PN ---
Progress Note - Progress Note Date of Service: 08/23/18 Note: Patient seen bedside in PACU, present. Still groggy, somewhat confused but appears comfortable s/p LTK. Able to DF left foot, + sensation
[2018-08-23] MEDS: Carvedilol TAB* 6.25 MG PO SCH (21:33)
[2018-08-23] MEDS: traMADol TAB* 50 MG PO PRN (21:33)
[2018-08-23] MEDS: Docusate CAP* 100 MG PO SCH (21:33)
[2018-08-23] MEDS: Magnesium Hydroxide LIQ* 30 ML UDC PO SCH (21:34)
[2018-08-23] MEDS ORDERED: ALPRAZolam TAB* 0.5 MG PO SCH (22:30)
[2018-08-23] MEDS: ceFAZolin 1 GM in Dextrose (*) 1 GM/50 ML BAG IVPB SCH (22:44)
--- NOTE | 2018-08-23 23:56 | CONS ---
[facility] MEDICINE CONSULTATION REPORT: DATE OF CONSULT: 08/23/18 PROVIDER: Tash Schmidt NP ATTENDING PHYSICIAN: Dr. Silva CONSULTING PHYSICIAN: Dr. Elba Reynolds (dictated by Tash Schmidt NP) REASON FOR CONSULT: Co-management of chronic medical conditions. HISTORY OF PRESENT ILLNESS: Mr. Barth is a 68-year-old male with a past medical history significant for atrial fibrillation, hypertension, coronary artery disease, GERD, and history of pulmonary embolism after shoulder surgery, who presented to [facility] [place] an elective left total knee arthroplasty with Dr. Silva. Please see H and P from DONTA Levin for complete details. In brief, the patient failed conservative treatment, therefore opted to proceed with left total knee arthroplasty that was scheduled today with Dr. Silva. PAST MEDICAL HISTORY: 1. Hypertension. 2. Coronary artery disease. 3. History of pulmonary embolism, status post right shoulder surgery. 4. Atrial fibrillation. 5. GERD. PAST SURGICAL HISTORY: 1. Right shoulder replacement. 2. Left shoulder replacement. HOME MEDICATIONS: Include: 1. Xarelto 20 mg p.o. daily. 2. Omeprazole 20 mg p.o. daily. 3. Alprazolam 1 mg p.o. daily. 4. Amlodipine 5 mg p.o. daily. 5. Mometasone nasal spray as needed. 6. Carvedilol 6.25 mg daily. 7. Vitamin C. 8. Multivitamin. 9. Osteo Bi-Flex. 10. CoQ-10. 11. Patricia-D. ALLERGIES: TETRACYCLINE and OXYCODONE. FAMILY HISTORY: Mother with a history of hypertension and DE. Father with an DE and at the age of 64. Father with a history of diabetes and brother with a history of brain cancer. SOCIAL HISTORY: Denies any tobacco use. He does report occasional alcohol use. Denies any illicit drug use. He is . He lives with his . His surrogate decision maker in the event he is unable to make his own decisions is his . He is a full code. REVIEW OF SYSTEMS: He denies any fever, unintended weight loss, chest pain, edema, cough, hemoptysis. He does report increased shortness of breath x6 months. Denies any nausea, vomiting, diarrhea, abdominal pain, gross hematuria , dysuria, focal weakness, or sensory loss. Denies any visual complaints, dysphagia, arthralgias, myalgias. He does have redness noted to his right vogel that has been chronic for several months. Denies any psychosis or anxiety. PHYSICAL EXAMINATION: General: At this time, Mr. Barth is alert and oriented , resting in his hospital room. He is well developed, well nourished, in no acute distress. Vital Signs: Blood pressure was 124/70, temperature was 97.3, heart rate 90, respirations are 20, O2 saturation 98% on 4 L. HEENT: Head is atraumatic, normocephalic. Eyes: EOMs are intact. Sclerae anicteric and not pale. Oral mucosa appeared to be moist. Neck is supple. Lungs are clear to auscultation bilaterally. No wheezes, rales, or rhonchi. Cardiac: S1, S2. Irregular rate and rhythm. No murmurs, rubs, or gallops. Abdomen is soft and nontender. Bowel sounds are present x4. Extremities: He has a dressing that is dry and intact to his left knee. Pedal pulses are +2 bilaterally. Sensation is intact to bilateral lower extremities. Neurologic: He is awake, alert, and oriented x3. Speech is clear. Thought process is intact. There are no gross focal deficits. Skin: He has a dry and intact dressing to the left knee and a small reddened area noted to his right vogel. LABORATORY DATA: From 08/10/18, WBCs were 5.1, RBCs 5.59, hemoglobin 14.9, hematocrit was 48, platelet count 236. INR was 1.39. Sodium 139, potassium 4.6 , chloride 104, carbon dioxide was 28, anion gap was 7, BUN was 26, creatinine was 0.99. Urine had trace ketones, otherwise was negative. IMPRESSION AND PLAN: Mr. Barth is a 68-year-old male with a past medical history significant for hypertension, coronary artery disease, history of pulmonary embolism after left shoulder surgery, new diagnoses of atrial fibrillation 2 months ago and GERD, who presented to the [facility] for an elective left total knee arthroplasty with Dr. Silva. [facility] medicine was asked to consult due to his chronic medical conditions. Our recommendations are as follows: 1. Status post left knee arthroplasty. Management per Orthopedics. PT/OT per Orthopedics. Bowel regimen per Orthopedics. DVT prophylaxis per Orthopedics. 2. Atrial fibrillation. I would continue him on his Coreg as previously prescribed and resume Xarelto as soon as possible. 3. Hypertension. I would continue his amlodipine and Coreg as previously prescribed, hold for systolic blood pressure less than 110. 4. Gastroesophageal reflux disease. I would continue his omeprazole 20 mg p.o. daily. 5. History of pulmonary embolism. I would resume his Xarelto as soon as possible as the patient has a history of pulmonary embolism, status post surgical repair of his shoulder. 6. DVT prophylaxis, as per Orthopedics. 7. Code status. He is a full code. TIME SPENT: Time spent on this consultation was 45 minutes, greater than half of that time was spent at the bedside reviewing events leading thus far to his hospitalization, performing my physical exam, and implementing my plan of care. I have discussed this with my attending, Dr. Elba Reynolds, she is in agreement with my plan. TASH SCHMIDT, CYNTHIA [id number]/[facility] #: [id number] ED
[2018-08-24] MEDS: Acetaminophen TAB* 325 MG PO SCH ×2 (01:29→08:38)
[2018-08-24] MEDS: traMADol TAB* 50 MG PO PRN ×4 (01:29→14:40)
[2018-08-24] MEDS: ceFAZolin 1 GM in Dextrose (*) 1 GM/50 ML BAG IVPB SCH ×2 (06:30→14:03)
[2018-08-24 06:38] LABS: Hematocrit 41 % (36-46); Hemoglobin 13.1 g/dL (14.0-18.0); Mean Platelet Volume 9.3 fL (7.4-10.4); Platelet Count 167 10^3/uL (150-450)
[2018-08-24 06:52] LABS: BUN/Creatinine Ratio 20.4 (8-20); Calcium 8.6 mg/dL (8.6-10.3); EGFR African American 98.1 (>60); Potassium 4.7 mmol/L (3.5-5.0)
--- NOTE | 2018-08-24 07:37 | OP ---
DATE OF OPERATION: 08/23/18 - ROOM #333 DATE OF : 52 ATTENDING SURGEON: Lynne Silva MD. CUSTOMER ORDERS CLERK: DONTA Bains. Ms. Tyson did help throughout the procedure with preparation of the leg, wound retraction, manipulation of the knee, and wound closure. ANESTHESIOLOGIST: Dr. Nj. ANESTHESIA: Spinal. PRE-OP DIAGNOSIS: Severe end-stage degenerative osteoarthritis of the left knee joint. POST-OP DIAGNOSIS: Severe end-stage degenerative osteoarthritis of the left knee joint. OPERATIVE PROCEDURE: Left total knee arthroplasty. TOURNIQUET TIME: 48 minutes. COMPLICATIONS: None. ESTIMATED BLOOD LOSS: 200 cc. SPECIMEN: Bone and cartilage from the left knee joint sent to pathology. HARDWARE USED: This is a cemented Lucero [employer] Nephew total knee arthroplasty hardware. For the femur, a size 7 left posterior stabilized LEGION Oxinium femoral component. For the tibia, a size 6 left DEJAH II tibial baseplate. For the insert, a 9 mm posterior stabilized articular insert size 5/6 and for the patella, a 35 mm 3-peg all-poly patella with 7.5 thickness. BRIEF HISTORY/INDICATION: Mr. Barth is a 68-year-old gentleman with years of increasingly severe left knee pain. He failed conservative treatment with antiinflammatories, pain medications, intraarticular injections, and physical therapy. Radiographs showed severe end-stage arthritis. He had [id number] contact. Due to continued pain and decreased quality of life, the patient elected to undergo left total knee arthroplasty. Informed consent was obtained from the patient. He understood the risks of surgery included; but were not limited to, bleeding, infection, damage to nearby structures, continued pain, need for further surgery, intraoperative fracture, nerve palsy, hardware failure or loosening, knee stiffness, loss of motion, stroke, heart attack, blood clot, and . He wished to proceed. INTRAOPERATIVE FINDINGS: Intraoperatively, the patient was noted to have severe end-stage arthritis with complete loss of cartilage in all 3 compartments. The patella had bony deformity due to chronic wear. DESCRIPTION OF PROCEDURE: Mr. Barth was identified in the preanesthesia unit. His left lower extremity was marked as the correct operative site. Informed consent was signed and placed in the chart. The patient was taken to the operating room and placed under anesthesia without difficulty. A Youngblood catheter was placed. Tourniquet was placed on the left lower extremity. Left lower extremity was prepped and draped in the usual sterile fashion. A preop time-out was made to correctly identify the patient, side, and site. Appropriate perioperative antibiotics were given within 1 hour of incision. Tourniquet was inflated and total tourniquet time for this procedure was 48 minutes. A midline incision was made and carried down to the extensor mechanism. A new 10 blade was used to make a standard medial parapatellar arthrotomy. The patella was subluxed laterally. Electrocautery was used to subperiosteally elevate soft tissue off the superomedial tibia to the midsagittal plane. The knee was flexed up. The anterior horn of the lateral meniscus and ACL were sharply released. A drill was used to enter the distal femur. Intramedullary distal femoral cutting guide was pinned on the distal femur. Oscillating saw was used to make the distal femoral cut. External rotation guide was pinned on the distal femur. The distal femur was sized to a size 7. Size 7 multi-cutting jig was placed on the distal femur. Oscillating saw was used to make the appropriate 4 chamfer cuts. Next, the extramedullary tibial cutting guide was placed on the proximal tibia. Oscillating saw was used to make the proximal tibial cut perpendicular to the mechanical axis of the tibia. The bone was carefully removed. The knee was brought out into full extension. The spacer block had good fit with the knee in full extension. There was good medial and lateral ligamentous balancing. Flexion and extension gaps were well balanced. The knee was flexed up. Lamina screen printing cloth spreader was placed both medially and laterally. Any remaining meniscus was carefully removed using electrocautery. Curved osteotome was used to remove any posterior osteophytes. Tibial tray and drop julieta were placed and once again confirmed a satisfactory tibial cut. A size 7 left femoral trial was impacted onto the distal femur and had excellent fit and stability. The box for the posterior stabilized implant was prepared using a reamer and box cut osteotome. A size 6 tibial tray trial with a 9 mm insert trial was placed and the knee was taken through a range of motion. The knee had full extension to 130 degrees of flexion. There was satisfactory patellofemoral tracking. The patella was everted; 7 mm of patellar bone and cartilage was carefully removed using an oscillating saw. Patella was sized to a size 35. Three peg holes were drilled through the size 35 guide. A 35 trial patella was placed and the knee was taken through a range of motion. There was satisfactory patellofemoral tracking. All trials were carefully removed. The tibia was subluxed anteriorly and sized to a size 6. The proximal tibia was prepared using a size 6 keel punch. All bony cut surfaces were copiously irrigated with sterile saline and dried. The final implants were cemented into place starting with the tibia, followed by the femur and last the patella. A 9 mm insert trial was placed and the knee was brought out into full extension. The tourniquet was turned down at 48 minutes. The knee was copiously irrigated with sterile saline. Electrocautery was used to obtain meticulous hemostasis. Once the cement was fully cured, the insert trial was removed. Any excess cement was removed from around the capsule and hardware. Final insert chosen was a 9 mm posterior stabilized articular insert, size 5/6. This was locked into position on the tibial tray without difficulty. The stability of the insert was checked and rechecked and noted to be stable. The extensor mechanism was closed using interrupted #1 Vicryls. The rest of the incision was closed using 0 and 2-0 Vicryls. The skin was closed using running 3-0 nylon suture. Sterile Xeroform, 4x4s, and Webril were used to cover the incision. The Dennis wrap and cold pack were placed over this. The patient's anesthesia was reversed without difficulty. He was taken to the PACU in stable condition. Intended weightbearing will be weightbearing as tolerated. [id number]/[facility] #: [id number] ED
[2018-08-24] MEDS: Carvedilol TAB* 6.25 MG PO SCH (08:37)
[2018-08-24] MEDS: Magnesium Hydroxide LIQ* 30 ML UDC PO SCH (08:37)
[2018-08-24] MEDS: Docusate CAP* 100 MG PO SCH (08:37)
[2018-08-24] MEDS ORDERED: Rivaroxaban TAB(*) 10 MG PO SCH (09:00)
[2018-08-24] MEDS ORDERED: Pantoprazole TAB * 40 MG TAB PO SCH (09:00)
[2018-08-24] MEDS ORDERED: Ascorbic Acid TAB* 500 MG PO SCH (09:00)
[2018-08-24] MEDS ORDERED: Prenatal Vitamin TAB PO SCH (09:00)
[2018-08-24] MEDS ORDERED: Fluticasone NASAL SPRAY 50MCG* 16 gm SPRAY BTL BOTH NARES SCH (09:00)
[2018-08-24] MEDS ORDERED: Coenzyme Q10 (NF) ** ENTER STREGNTH IN LABEL DIRECTIONS PO SCH (09:00)
[2018-08-24] MEDS ORDERED: amLODIPine TAB* 5 MG PO SCH (09:00)
--- NOTE | 2018-08-24 11:55 | PN ---
Progress Note - Progress Note Date of Service: 08/24/18 SOAP: Subjective: []Patient seen OOB in chair. Denies SOB, CP, palpitations or dizziness. Hopes he will be able to go home this afternoon after PT session. Objective: [] Vital Signs Temp 97.4 F 08/24/18 07:12 Pulse 86 08/24/18 07:12 Resp 18 08/24/18 10:43 BP 109/74 08/24/18 07:12 Pulse Ox 97 08/24/18 08:00 Intake & Output 08/23/18 08/24/18 08/24/18 18:59 06:59 18:59 Intake Total 1500 1759 240 Output Total 400 1750 200 Balance 1100 9 40 Weight 224 lb Intake: IV Fluids 1500 1039 ABX - CEFAZOLIN 54 LR 1500 985 Oral 720 240 Output: Urine 200 Youngblood 400 1750 Laboratory Results - last 24 hr 08/24/18 08/24/18 06:02 06:02 Hgb 13.1 L Hct 41 Plt Count 167 MPV 9.3 Sodium 131 L Potassium 4.7 Chloride 99 L Carbon Dioxide 27 Anion Gap 5 BUN 19 Creatinine 0.93 Est GFR ( Amer) 98.1 Est GFR (Non-Af Amer) 81.0 BUN/Creatinine Ratio 20.4 H Glucose 171 H Calcium 8.6 Left knee incision benign, 4x4s and EAGLE applied +Df left ankle sensation intact distally 2+ DP pulse Assessment: []s/p LTK POD #1 Plan: []PT/OT WBAT LLE Xarelto 20 mg daily as per pre op Probable discharge home this afternoon Follow up 10-[address] Silva in office
[2018-08-24 12:51] VITALS: BP 114/68
[2018-08-24] MEDS ORDERED: Cetirizine* 10 MG TAB PO SCH (18:00)
--- NOTE | 2018-08-24 22:25 | DS ---
DATE OF ADMISSION: 08/23/18 DATE OF DISCHARGE: 08/24/18 ATTENDING PHYSICIAN: Lynne Silva MD.* (DICTATED BY DONTA MORRISON) ADMISSION DIAGNOSIS: Severe end-stage degenerative osteoarthritis, left knee joint. DISCHARGE DIAGNOSIS: Severe end-stage degenerative osteoarthritis, left knee joint. SURGERY PERFORMED: Left total knee arthroplasty. HOSPITAL COURSE: Patient is a 68-year-old male with increasingly severe left knee pain. He failed conservative management with antiinflammatories, pain medications, intraarticular cortisone injections, and physical therapy. His plain films revealed severe end-stage osteoarthritis with [id number] contact. Due to continued pain and decreased quality of life, he elected to proceed with left total knee arthroplasty. He was taken to the operating room under the care of Dr. Lynne Silva on the date of 08/23/18. He tolerated the aforementioned procedure well, left the operating room in stable condition. Postoperatively, he progressed satisfactorily with physical therapy and occupational therapy goals, bearing weight as tolerated on the left lower extremity. He had no postoperative medical or orthopedic complications and is found to be stable for discharge to home on the date of 08/24/18. CONDITION ON DISCHARGE: Temperature 97.8, pulse 73, respiratory rate 16, O2 saturation 96% on room air, and blood pressure 114/68. His left knee incision was healing without evidence of infection. There was no drainage. His swelling was minimal. His calf is soft and nontender. He has active dorsiflexion of the left ankle. Circulation and sensation are intact distally. PLAN: Discharged to home on 08/24/18. He will continue to bear weight as tolerated on the left lower extremity. Continue with physical therapy exercise program. He will resume his Xarelto 20 mg p.o. daily as per preoperatively and for his DVT prophylaxis. He was provided a prescription of tramadol 50 mg p.o. q.4 hours p.r.n. pain, MDD 6, #42. He will follow up in the office as scheduled with Dr. Silva in roughly 10 to 14 days. He may shower on postoperative day #3. All questions were answered prior to discharge. DONTA MORRISON [id number]/[facility] #: [id number] ED
[2018-08-25] MEDS ORDERED: Rivaroxaban TAB(*) 20 MG TAB PO SCH (09:00)
== END 2018-08-24 15:39 | disposition home or self-care (01) | DRG 302 ==
LOC: AA 12:00 → SSU 18:35
PROVIDERS: ADMIT Orthopaedic Surgery Adult Reconstructive Orthopaedic Surgery; ATTEND Orthopaedic Surgery Adult Reconstructive Orthopaedic Surgery
PROC: 0SRD069 Replacement of Left Knee Joint with Oxidized Zirconium on Polyethylene Synthetic Substitute, Cemented, Open Approach (ICD-10-PCS; principal; 2018-08-23 16:00)
DX: M17.12 Unilateral primary osteoarthritis, left knee (principal); I42.9 Cardiomyopathy, unspecified; I25.10 Atherosclerotic heart disease of native coronary artery without angina pectoris; I48.91 Unspecified atrial fibrillation; K21.9 Gastro-esophageal reflux disease without esophagitis; R63.4 Abnormal weight loss; F41.9 Anxiety disorder, unspecified; M25.462 Effusion, left knee; I11.9 Hypertensive heart disease without heart failure; M25.762 Osteophyte, left knee; Z96.611 Presence of right artificial shoulder joint; Z88.5 Allergy status to narcotic agent; Z88.1 Allergy status to other antibiotic agents; Z82.49 Family history of ischemic heart disease and other diseases of the circulatory system; Z83.3 Family history of diabetes mellitus; Z79.01 Long term (current) use of anticoagulants; Z86.711 Personal history of pulmonary embolism; Z72.89 Other problems related to lifestyle; R41.0 Disorientation, unspecified; Z80.8 Family history of malignant neoplasm of other organs or systems; Z68.32 Body mass index [BMI] 32.0-32.9, adult
CPT/HCPCS: 36415; 80048; 85014; 85018; 85049; A9270-GY; C1776; G8978-GP-CJ; G8979-GP-CI; J0690; J1100; J1170; J1885; J2250; J2405; J2704; J2795; J3010

== ENCOUNTER 2018-11-02 15:57 | Emergency (ER) | payer BC ==
[2018-11-02 16:43] VITALS: BP 108/74
--- NOTE | 2018-11-02 17:53 | UC ---
General HPI - HPI Summary HPI Summary: about 5:30 this am, pt had a cow bump into to him causing him to fall forward and injure his L shoulder. 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 I questioned his about the elbow and knee pain, he notes they are not bothering him. he is here for the shoulder. - History of Current Complaint Chief Complaint: UCRespiratory Stated Complaint: LEFT SHOULDER INJURY Time Seen by Provider: 11/02/18 17:30 Hx Obtained From: Patient Onset/Duration: Sudden Onset Timing: Constant Pain Intensity: 10 Aggravating: movement - Allergy/Home Medications Allergies/Adverse Reactions: Allergies Allergy/AdvReac Type Severity Reaction Status Date / Time oxycodone Allergy Severe See Comment Verified 11/02/18 16:32 tetracycline Allergy See Comment Verified 11/02/18 16:32 Home Medications: Home Medications Hydrocodone 1 tab Q4HR PRN 11/02/18 [History Confirmed 11/02/18] PMH/Surg Hx/FS Hx/Imm Hx Cardiovascular History: Hypertension, Atrial Fibrillation - Surgical History Surgical History: Yes Surgery Procedure, Year, and Place: left total shoulder,. Right rotator cuff shoulder. LEFT total knee, 08/23/18 - Family History Known Family History: Positive: None, Cardiac Disease - Social History Occupation: Employed Full-time Alcohol Use: Rare Alcohol Amount: 1 small amount at night Substance Use Type: None Smoking Status (MU): Never Smoked Tobacco Have You Smoked in the Last Year: No - Immunization History Most Recent Influenza Vaccination: 2018 Most Recent Pneumonia Vaccination: HAS HAD Review of Systems All Other Systems Reviewed And Are Negative: No Constitutional: Negative: Fever Skin: Negative: Rash Musculoskeletal: Positive: Decreased ROM - L shoulder, Edema - L shoulder Neurological: Negative: Numbness Physical Exam Triage Information Reviewed: Yes Appearance: Well-Appearing Vital Signs: Initial Vital Signs Temp 98.5 F 11/02/18 16:32 Pulse 60 11/02/18 16:32 Resp 16 11/02/18 16:32 BP 108/74 11/02/18 16:32 Pulse Ox 97 11/02/18 16:32 Vital Signs Reviewed: Yes Eyes: Positive: Conjunctiva Clear Neck: Positive: Supple, Nontender, No Lymphadenopathy, Other: - c-spine i non tender Respiratory: Positive: Chest non-tender, No respiratory distress Musculoskeletal: Positive: Other: - LUE: post p scar and swelling to anterior shoulder. tender over the anterior and lateral shoulder. shoulder has limited rom due to pain. elbow, forearm, wrist and hand are non tender plus s/v/m function is intact. Neurological: Positive: Alert Psychological: Positive: Age Appropriate Behavior Skin Exam: Normal Diagnostics - Radiology No standard instances Radiology Interpretation Completed By: Radiologist - IMPRESSION: Reversed left shoulder replacement without hardware failure. No periprosthetic fracture or lucency is noted. No prior study is available limiting study. Re-Evaluation - Re-Evaluation First Eval Re-Evaluation Time: 18:15 Change: Unchanged - LIMITED PASSIVE ROM POST XRAY DUE TO PAIN, MOSTLY IN ABDUCTION. ACTIVE ROM VERY LIMITED WELL. Course/Dx - Differential Dx - Multi-Symptom Differential Diagnoses: Other - no fx or dislocation - Diagnoses Provider Diagnosis: Left shoulder pain Discharge - Sign-Out/Discharge Documenting (check all that apply): Patient Departure All imaging exams completed and their final reports reviewed: Yes - Discharge Plan Condition: Stable Disposition: HOME Patient Education Materials: Shoulder Pain (ED), Rotator Cuff Injury (ED) Referrals: Lynne Silva MD [Medical Doctor] - As Soon As Possible Additional Instructions: SLING UNTIL CLEARED BY ORTHOPEDICS. - Billing Disposition and Condition Condition: STABLE Disposition: Home
== END 2018-11-02 18:33 | disposition home or self-care (01) ==
LOC: UCCORT 15:57
DX: M25.512 Pain in left shoulder (principal); W55.22XA Struck by cow, initial encounter; Z88.1 Allergy status to other antibiotic agents; Z88.5 Allergy status to narcotic agent
CPT/HCPCS: 99212; G0463